=== PATIENT | male | born 1945 | race Caucasian/White ===

== ENCOUNTER 2017-09-14 05:20 | Emergency (ER) | payer OTHER ==
[~2017-09-14] VITALS: Ht 177.8 cm; Wt 122.5 kg
[~2017-09-14 05:20] MED LIST: AMLO10 PO; AMOX500 PO; CARBLEV25 PO; DOCU100 PO; GLIP10 PO; INDO25 PO; LEVSOD50 PO; LOSHYD100 PO; METF500 PO; METO25 PO; OMEP20ER PO
[2017-09-14] MEDS ORDERED: FISH OIL 1,0001 EAC1 PO (05:42)
[2017-09-14] MEDS ORDERED: Hair, Skin & N1 EACH PO (05:43)
[2017-09-14] MEDS ORDERED: SIMV10 PO (05:44)
[2017-09-14] MEDS ORDERED: POLYETHYLENE G500 GM PO (05:44)
[2017-09-14] MEDS ORDERED: TRAZ50 PO (05:45)
[2017-09-14] MEDS ORDERED: OXYC5 PO (05:46)
[2017-09-14 07:14] LABS: BASOPHILS ABSOLUTE AUTO 0.04 K/mm3 (0.00-0.23); BASOPHILS PERCENT AUTO 0 % (0-2); EOSINOPHILS ABSOLUTE AUTO 0.17 K/mm3 (0.00-0.68); EOSINOPHILS PERCENT AUTO 2 % (0-6); Hematocrit 40.2 % (37.0-53.0); Hemoglobin 13.7 g/dL (13.5-17.5); IMMATURE GRAN ABSOLUTE AUTO 0.05 K/mm3 (0.00-0.10); IMMATURE GRAN PERCENT AUTO 1 % (0-1); LYMPHOCYTES ABSOLUTE AUTO 1.67 K/mm3 (0.84-5.20); LYMPHOCYTES PERCENT AUTO 18 % (21-46); MONOCYTES ABSOLUTE AUTO 0.86 K/mm3 (0.16-1.47); MONOCYTES PERCENT AUTO 9 % (4-13); Mean Corpuscular HGB 32.7 pg (26.0-34.0); Mean Corpuscular HGB Conc 34.1 g/dL (31.5-36.5); Mean Corpuscular Volume 96 fL (80-100); Mean Platelet Volume 9.9 fL (9.1-12.4); NEUTROPHILS ABSOLUTE AUTO 6.61 K/mm3 (1.96-9.15); NEUTROPHILS PERCENT AUTO 70 % (41-73); Platelet Count 209 K/mm3 (150-400); RDW Standard Deviation 46.2 fL (35.1-46.3); Red Blood Cell Count 4.19 M/mm3 (4.30-5.90)
[2017-09-14 07:23] LABS: Anion Gap 9 mmol/L (6-16); Blood Urea Nitrogen 16 mg/dL (8-24); Bun/Creatinine Ratio 19.3 (12.0-20.0); CO2, Blood 27 mmol/L (21-32); Calcium, Blood 8.7 mg/dL (8.5-10.1); Chloride, Blood 104 mmol/L (98-108); Creatinine, Blood 0.83 mg/dL (0.60-1.20); Glomerular Filtration Rate >60 (60-); Glucose, Blood 206 mg/dL (70-99); Potassium, Blood 3.8 mmol/L (3.5-5.5); Sodium, Blood 140 mmol/L (136-145)
== END 2017-09-14 10:45 | disposition other institution (70) ==
LOC: ER 05:20
PROVIDERS: Emergency Medicine
DX: T18.128A Food in esophagus causing other injury, initial encounter (principal); I10 Essential (primary) hypertension; E11.9 Type 2 diabetes mellitus without complications; Z88.8 Allergy status to other drugs, medicaments and biological substances; Z79.899 Other long term (current) drug therapy; Z79.84 Long term (current) use of oral hypoglycemic drugs; Z87.891 Personal history of nicotine dependence
CPT/HCPCS: 80048; 82947; 85025; C1726; J1610; J2250; J7030; J7120

== ENCOUNTER 2018-05-27 | Emergency (ER) | payer OTHER ==
[~2018-05-27] VITALS: Ht 170.2 cm; Wt 122.5 kg
[~2018-05-27] MED LIST changes: +FISH OIL 1,0001 EAC1 PO; +Hair, Skin & N1 EACH PO; +OXYC5 PO; +POLYETHYLENE G500 GM PO; +SIMV10 PO; +TRAZ50 PO
== END 2018-05-27 02:10 | disposition home or self-care (01) ==
LOC: ER
DX: S09.90XA Unspecified injury of head, initial encounter (principal); M54.2 Cervicalgia; I10 Essential (primary) hypertension; E11.9 Type 2 diabetes mellitus without complications; Z88.8 Allergy status to other drugs, medicaments and biological substances; Z79.899 Other long term (current) drug therapy; Z79.84 Long term (current) use of oral hypoglycemic drugs; Z87.891 Personal history of nicotine dependence; W18.30XA Fall on same level, unspecified, initial encounter
CPT/HCPCS: 70450; 72125; 99284-25

== ENCOUNTER 2019-03-16 11:50 | Emergency (ER) | payer OTHER ==
[~2019-03-16] VITALS: Ht 175.3 cm; Wt 113.4 kg
[~2019-03-16 11:50] MED LIST changes: +ALOGLIPTIN25 MG PO; -CARBLEV25 PO; +CYAN500 PO; +Carbidopa-Levo1 EAC2 PO; +DONE5 PO; +DONEPEZIL HCL10 MG PO; +ENTA200 PO; +Fish Oil Conc1000 MG PO; +GABA100 PO; -GLIP10 PO; +GLIP5 PO; +Glucophage1000 MG PO; +HYDPAM25 PO; +LACT PO; +LIDOCAINE5 GM TOP; +LOSARTAN POTAS100 MG PO; +MEMA5TAB PO; -METF500 PO; +MIRALAX17 GM PO; +MYRBETRIQ25 MG PO; +Nystatin15 GM TOP; +OMEPRAZOLE20 MG PO; -POLYETHYLENE G500 GM PO; +THERA-D2000 UNIT PO; +TRIDERM28.4 GM TOP; +VANICREAM453 GM TOP; +VOLTAREN100 GM TOP; +Zinc Oxide56.7 GM TOP
[2019-03-16] MEDS ORDERED: TRIA15CR3 TOP (12:19)
[2019-03-16] MEDS ORDERED: VOLTAREN100 GM TOP (12:20)
[2019-03-16] MEDS ORDERED: NYSTATIN1 EAC1 TOP (12:21)
[2019-03-16 12:33] LABS: BASOPHILS ABSOLUTE AUTO 0.03 K/mm3 (0.00-0.23); BASOPHILS PERCENT AUTO 0 % (0-2); EOSINOPHILS ABSOLUTE AUTO 0.18 K/mm3 (0.00-0.68); EOSINOPHILS PERCENT AUTO 2 % (0-6); Hematocrit 42.7 % (37.0-53.0); Hemoglobin 14.3 g/dL (13.5-17.5); IMMATURE GRAN ABSOLUTE AUTO 0.04 K/mm3 (0.00-0.10); IMMATURE GRAN PERCENT AUTO 1 % (0-1); LYMPHOCYTES ABSOLUTE AUTO 0.97 K/mm3 (0.84-5.20); LYMPHOCYTES PERCENT AUTO 12 % (21-46); MONOCYTES ABSOLUTE AUTO 0.66 K/mm3 (0.16-1.47); MONOCYTES PERCENT AUTO 8 % (4-13); Mean Corpuscular HGB 31.9 pg (26.0-34.0); Mean Corpuscular HGB Conc 33.5 g/dL (31.5-36.5); Mean Corpuscular Volume 95 fL (80-100); Mean Platelet Volume 10.2 fL (9.1-12.4); NEUTROPHILS ABSOLUTE AUTO 6.11 K/mm3 (1.96-9.15); NEUTROPHILS PERCENT AUTO 76 % (41-73); Platelet Count 202 K/mm3 (150-400); RDW Coefficient Variation 12.9 % (11.7-14.2); RDW Standard Deviation 45.1 fL (35.1-46.3); Red Blood Cell Count 4.48 M/mm3 (4.30-5.90); White Blood Cell Count 7.99 K/mm3 (4.00-11.30)
[2019-03-16 12:59] LABS: Alanine Aminotransfer (ALT/SGP 11 U/L (12-78); Albumin, Blood 3.6 g/dL (3.4-5.0); Albumin/Globulin Ratio 0.9 (0.8-1.8); Alk Phos 65 U/L (50-136); Anion Gap 9 mmol/L (6-16); Aspartate Aminotrans (AST/SGOT 14 U/L (12-37); Bilirubin, Total 0.5 mg/dL (0.1-1.0); Blood Urea Nitrogen 20 mg/dL (8-24); Bun/Creatinine Ratio 27.2 (12.0-20.0); CO2, Blood 23 mmol/L (21-32); Calcium, Blood 8.6 mg/dL (8.5-10.1); Chloride, Blood 104 mmol/L (98-108); Creatinine, Blood 0.74 mg/dL (0.60-1.20); Globulin, Blood 3.9 g/dL (2.2-4.0); Glomerular Filtration Rate >60 (60-); Glucose, Blood 282 mg/dL (70-99); Potassium, Blood 3.8 mmol/L (3.5-5.5); Sodium, Blood 136 mmol/L (136-145); Total Protein, Blood 7.5 g/dL (6.4-8.2); Troponin I <0.015 ng/mL (0.000-0.040)
[2019-03-16] MEDS ORDERED: MAGOXI400 PO (14:44)
== END 2019-03-16 14:56 | disposition home or self-care (01) ==
LOC: ER 11:50
PROVIDERS: Emergency Medicine
DX: M62.838 Other muscle spasm (principal); E83.42 Hypomagnesemia; G20 Parkinson's disease; F02.80 Dementia in other diseases classified elsewhere, unspecified severity, without behavioral disturbance, psychotic disturbance, mood disturbance, and anxiety; I10 Essential (primary) hypertension; G47.33 Obstructive sleep apnea (adult) (pediatric); Z88.8 Allergy status to other drugs, medicaments and biological substances; Z79.899 Other long term (current) drug therapy; Z79.84 Long term (current) use of oral hypoglycemic drugs
CPT/HCPCS: 36415; 71046; 80053; 83735; 83880; 84484; 85025; 93005; 93010; 99285-25

== ENCOUNTER 2019-06-07 23:16 | Emergency (ER) | payer OTHER ==
[~2019-06-07] VITALS: Ht 165.1 cm; Wt 109.3 kg
[~2019-06-07 23:16] MED LIST changes: +MAGOXI400 PO; +NYSTATIN1 EAC1 TOP; +TRIA15CR3 TOP
== END 2019-06-08 01:37 | disposition home or self-care (01) ==
LOC: ER 23:16
DX: S00.83XA Contusion of other part of head, initial encounter (principal); F03.90 Unspecified dementia, unspecified severity, without behavioral disturbance, psychotic disturbance, mood disturbance, and anxiety; W18.30XA Fall on same level, unspecified, initial encounter; I10 Essential (primary) hypertension; E11.9 Type 2 diabetes mellitus without complications; E03.9 Hypothyroidism, unspecified; G20 Parkinson's disease; Z87.891 Personal history of nicotine dependence; Z79.899 Other long term (current) drug therapy; Z88.8 Allergy status to other drugs, medicaments and biological substances; Z79.84 Long term (current) use of oral hypoglycemic drugs
CPT/HCPCS: 70450; 72125; 93005; 93010; 99284-25

== ENCOUNTER 2020-03-06 11:04 | Emergency (ER) | payer OTHER ==
[~2020-03-06] VITALS: Ht 185.4 cm; Wt 120.2 kg
[~2020-03-06 11:04] MED LIST changes: +CEFP200 PO; +Macrobid 100 M100 MG PO; +ONDA4ODT SL
[2020-03-06 11:55] LABS: BASOPHILS ABSOLUTE AUTO 0.04 K/mm3 (0.00-0.23); BASOPHILS PERCENT AUTO 0 % (0-2); EOSINOPHILS ABSOLUTE AUTO 0.14 K/mm3 (0.00-0.68); EOSINOPHILS PERCENT AUTO 1 % (0-6); Hemoglobin 13.6 g/dL (13.5-17.5); IMMATURE GRAN ABSOLUTE AUTO 0.04 K/mm3 (0.00-0.10); IMMATURE GRAN PERCENT AUTO 0 % (0-1); LYMPHOCYTES ABSOLUTE AUTO 0.92 K/mm3 (0.84-5.20); LYMPHOCYTES PERCENT AUTO 9 % (21-46); MONOCYTES PERCENT AUTO 9 % (4-13); Mean Corpuscular HGB 30.8 pg (26.0-34.0); Mean Corpuscular Volume 91 fL (80-100); Mean Platelet Volume 10.4 fL (9.1-12.4); NEUTROPHILS ABSOLUTE AUTO 8.06 K/mm3 (1.96-9.15); NEUTROPHILS PERCENT AUTO 80 % (41-73); Platelet Count 173 K/mm3 (150-400); Red Blood Cell Count 4.41 M/mm3 (4.30-5.90)
[2020-03-06 12:09] LABS: Alanine Aminotransfer (ALT/SGP 8 U/L (12-78); Albumin, Blood 3.5 g/dL (3.4-5.0); Alk Phos 67 U/L (50-136); Anion Gap 6 mmol/L (6-16); Aspartate Aminotrans (AST/SGOT 16 U/L (12-37); Bilirubin, Total 0.8 mg/dL (0.1-1.0); Blood Urea Nitrogen 18 mg/dL (8-24); Bun/Creatinine Ratio 22.4 (12.0-20.0); CO2, Blood 29 mmol/L (21-32); Calcium, Blood 8.7 mg/dL (8.5-10.1); Chloride, Blood 103 mmol/L (98-108); Globulin, Blood 3.6 g/dL (2.2-4.0); Glomerular Filtration Rate >60 (60-); Glucose, Blood 261 mg/dL (70-99); Potassium, Blood 3.7 mmol/L (3.5-5.5); Sodium, Blood 138 mmol/L (136-145); Total Protein, Blood 7.1 g/dL (6.4-8.2); Troponin I <0.015 ng/mL (0.000-0.040)
[2020-03-06 15:20] LABS: Source, Urine Catheter
[2020-03-06 15:33] LABS: Blood, Urine 2+ (Neg); Glucose Qualitative, Urine 2+ (Neg); Ketones, Urine 1+ (Neg); Leukocyte Esterase, Urine 1+ (Neg); Nitrite, Urine Neg (Neg); Protein, Urine 2+ (Neg); Specific Gravity, Urine 1.015 (1.003-1.022); Urobilinogen, Urine NORM (Normal)
[2020-03-06 16:00] LABS: Appearance, Urine Hazy (Clear); Bilirubin, Urine 1+ (Neg); Color, Urine Yellow (P-Yellow); White Blood Cells, Urine 0-2 /hpf (0-5)
[2020-03-06 16:01] LABS: Amorphous Light (0-Heavy); Bacteria Many /hpf; Hyaline Casts 0-2 /lpf (0-2); Squamous Epithelial Cells Rare /hpf (Few)
== END 2020-03-06 17:09 | disposition home or self-care (01) ==
LOC: ER 11:04
PROVIDERS: Emergency Medicine
DX: R53.1 Weakness (principal); R06.02 Shortness of breath; R05 Cough; R61 Generalized hyperhidrosis; I10 Essential (primary) hypertension; E11.9 Type 2 diabetes mellitus without complications; G20 Parkinson's disease; Z88.8 Allergy status to other drugs, medicaments and biological substances; Z79.84 Long term (current) use of oral hypoglycemic drugs; Z87.891 Personal history of nicotine dependence; Z79.899 Other long term (current) drug therapy
CPT/HCPCS: 36415; 71045; 80053; 81001; 83605; 83880; 84145; 84484; 85025; 87086; 93005; 93010; 96365; 99285-25; J0696; J7120

== ENCOUNTER 2020-06-22 17:49 | Emergency (ER) | payer OTHER ==
[~2020-06-22] VITALS: Ht 175.3 cm; Wt 108.9 kg
[~2020-06-22 17:49] MED LIST changes: +CARBIDOPA-LEVO1 EA20 PO; -Carbidopa-Levo1 EAC2 PO; +EUTHYROX50 MCG PO; -LEVSOD50 PO; +LOSA25 PO; -LOSARTAN POTAS100 MG PO
[2020-06-22 18:17] LABS: BASOPHILS ABSOLUTE AUTO 0.05 K/mm3 (0.00-0.23); BASOPHILS PERCENT AUTO 1 % (0-2); EOSINOPHILS ABSOLUTE AUTO 0.12 K/mm3 (0.00-0.68); EOSINOPHILS PERCENT AUTO 1 % (0-6); Hematocrit 35.2 % (37.0-53.0); Hemoglobin 11.9 g/dL (13.5-17.5); IMMATURE GRAN ABSOLUTE AUTO 0.05 K/mm3 (0.00-0.10); IMMATURE GRAN PERCENT AUTO 1 % (0-1); LYMPHOCYTES ABSOLUTE AUTO 1.28 K/mm3 (0.84-5.20); LYMPHOCYTES PERCENT AUTO 13 % (21-46); MONOCYTES ABSOLUTE AUTO 0.86 K/mm3 (0.16-1.47); MONOCYTES PERCENT AUTO 9 % (4-13); Mean Corpuscular HGB 31.5 pg (26.0-34.0); Mean Corpuscular HGB Conc 33.8 g/dL (31.5-36.5); Mean Corpuscular Volume 93 fL (80-100); Mean Platelet Volume 10.2 fL (9.1-12.4); NEUTROPHILS PERCENT AUTO 76 % (41-73); Platelet Count 205 K/mm3 (150-400); RDW Coefficient Variation 13.1 % (11.7-14.2); RDW Standard Deviation 44.7 fL (35.1-46.3); Red Blood Cell Count 3.78 M/mm3 (4.30-5.90); White Blood Cell Count 9.76 K/mm3 (4.00-11.30)
[2020-06-22 18:35] LABS: Alanine Aminotransfer (ALT/SGP 9 U/L (12-78); Albumin, Blood 3.4 g/dL (3.4-5.0); Albumin/Globulin Ratio 1.1 (0.8-1.8); Alk Phos 65 U/L (50-136); Anion Gap 5 mmol/L (6-16); Aspartate Aminotrans (AST/SGOT 8 U/L (12-37); Bilirubin, Total 0.5 mg/dL (0.1-1.0); Blood Urea Nitrogen 35 mg/dL (8-24); Bun/Creatinine Ratio 28.5 (12.0-20.0); CO2, Blood 28 mmol/L (21-32); Calcium, Blood 8.6 mg/dL (8.5-10.1); Chloride, Blood 106 mmol/L (98-108); Creatinine, Blood 1.23 mg/dL (0.60-1.20); Globulin, Blood 3.2 g/dL (2.2-4.0); Glomerular Filtration Rate >60 (60-); Glucose, Blood 191 mg/dL (70-99); Potassium, Blood 4.1 mmol/L (3.5-5.5); Sodium, Blood 139 mmol/L (136-145); Total Protein, Blood 6.6 g/dL (6.4-8.2)
== END 2020-06-22 22:35 | disposition home or self-care (01) ==
LOC: ER 17:49
PROVIDERS: Emergency Medicine
DX: R53.1 Weakness (principal); R13.10 Dysphagia, unspecified; Z88.8 Allergy status to other drugs, medicaments and biological substances; Z79.899 Other long term (current) drug therapy
CPT/HCPCS: 80053; 83690; 85025; 93005; 93010; 99284-25

== ENCOUNTER 2020-06-30 15:16 | Emergency (ER) | payer OTHER ==
[~2020-06-30] VITALS: Ht 177.8 cm; Wt 562.5 kg
[2020-06-30 16:30] LABS: BASOPHILS ABSOLUTE AUTO 0.04 K/mm3 (0.00-0.23); BASOPHILS PERCENT AUTO 1 % (0-2); EOSINOPHILS ABSOLUTE AUTO 0.24 K/mm3 (0.00-0.68); EOSINOPHILS PERCENT AUTO 3 % (0-6); Hematocrit 36.2 % (37.0-53.0); Hemoglobin 12.3 g/dL (13.5-17.5); IMMATURE GRAN ABSOLUTE AUTO 0.03 K/mm3 (0.00-0.10); IMMATURE GRAN PERCENT AUTO 0 % (0-1); LYMPHOCYTES ABSOLUTE AUTO 1.29 K/mm3 (0.84-5.20); LYMPHOCYTES PERCENT AUTO 15 % (21-46); MONOCYTES ABSOLUTE AUTO 0.86 K/mm3 (0.16-1.47); MONOCYTES PERCENT AUTO 10 % (4-13); Mean Corpuscular HGB 31.3 pg (26.0-34.0); Mean Corpuscular Volume 92 fL (80-100); Mean Platelet Volume 10.2 fL (9.1-12.4); NEUTROPHILS ABSOLUTE AUTO 6.06 K/mm3 (1.96-9.15); NEUTROPHILS PERCENT AUTO 71 % (41-73); Platelet Count 197 K/mm3 (150-400); RDW Coefficient Variation 12.7 % (11.7-14.2); RDW Standard Deviation 42.5 fL (35.1-46.3); Red Blood Cell Count 3.93 M/mm3 (4.30-5.90); White Blood Cell Count 8.52 K/mm3 (4.00-11.30)
[2020-06-30 16:56] LABS: Alanine Aminotransfer (ALT/SGP 6 U/L (12-78); Albumin, Blood 3.2 g/dL (3.4-5.0); Albumin/Globulin Ratio 0.9 (0.8-1.8); Alk Phos 67 U/L (50-136); Anion Gap 6 mmol/L (6-16); Aspartate Aminotrans (AST/SGOT 9 U/L (12-37); Bilirubin, Total 0.4 mg/dL (0.1-1.0); Blood Urea Nitrogen 20 mg/dL (8-24); Bun/Creatinine Ratio 25.5 (12.0-20.0); CO2, Blood 31 mmol/L (21-32); Calcium, Blood 8.9 mg/dL (8.5-10.1); Chloride, Blood 104 mmol/L (98-108); Creatinine, Blood 0.79 mg/dL (0.60-1.20); Globulin, Blood 3.4 g/dL (2.2-4.0); Glomerular Filtration Rate >60 (60-); Glucose, Blood 132 mg/dL (70-99); Potassium, Blood 3.3 mmol/L (3.5-5.5); Sodium, Blood 141 mmol/L (136-145); Total Protein, Blood 6.6 g/dL (6.4-8.2)
== END 2020-06-30 19:18 | disposition home or self-care (01) ==
LOC: ER 15:16
PROVIDERS: Physician Assistant
DX: E86.1 Hypovolemia (principal); R55 Syncope and collapse; I10 Essential (primary) hypertension; E11.9 Type 2 diabetes mellitus without complications; E03.9 Hypothyroidism, unspecified; Z88.8 Allergy status to other drugs, medicaments and biological substances; Z79.899 Other long term (current) drug therapy; Z79.84 Long term (current) use of oral hypoglycemic drugs; Z87.891 Personal history of nicotine dependence
CPT/HCPCS: 36415; 80053; 84484; 85025; 93005; 93010; 99284-25

== ENCOUNTER 2020-09-02 18:13 | Emergency (ER) | payer OTHER ==
[~2020-09-02] VITALS: Ht 175.3 cm; Wt 109.8 kg
[2020-09-02 18:34] LABS: BASOPHILS ABSOLUTE AUTO 0.03 K/mm3 (0.00-0.23); BASOPHILS PERCENT AUTO 0 % (0-2); EOSINOPHILS ABSOLUTE AUTO 0.28 K/mm3 (0.00-0.68); EOSINOPHILS PERCENT AUTO 3 % (0-6); Hematocrit 38.8 % (37.0-53.0); Hemoglobin 13.2 g/dL (13.5-17.5); IMMATURE GRAN ABSOLUTE AUTO 0.03 K/mm3 (0.00-0.10); IMMATURE GRAN PERCENT AUTO 0 % (0-1); LYMPHOCYTES ABSOLUTE AUTO 1.28 K/mm3 (0.84-5.20); LYMPHOCYTES PERCENT AUTO 14 % (21-46); MONOCYTES PERCENT AUTO 10 % (4-13); Mean Corpuscular HGB 31.4 pg (26.0-34.0); Mean Corpuscular Volume 92 fL (80-100); Mean Platelet Volume 9.8 fL (9.1-12.4); NEUTROPHILS ABSOLUTE AUTO 6.72 K/mm3 (1.96-9.15); NEUTROPHILS PERCENT AUTO 73 % (41-73); Platelet Count 203 K/mm3 (150-400); RDW Coefficient Variation 13.4 % (11.7-14.2); RDW Standard Deviation 45.5 fL (35.1-46.3); Red Blood Cell Count 4.21 M/mm3 (4.30-5.90); White Blood Cell Count 9.24 K/mm3 (4.00-11.30)
[2020-09-02 18:46] LABS: Source, Urine Clean Catch
[2020-09-02 18:48] LABS: Appearance, Urine Hazy (Clear); Bilirubin, Urine Neg (Neg); Blood, Urine 2+ (Neg); Color, Urine Amber (P-Yellow); Glucose Qualitative, Urine 1+ (Neg); Ketones, Urine 2+ (Neg); Leukocyte Esterase, Urine 3+ (Neg); Nitrite, Urine Neg (Neg); Protein, Urine 2+ (Neg); Urobilinogen, Urine NORM (Normal)
[2020-09-02 18:54] LABS: Amorphous Mod (0-Heavy); Bacteria Mod /hpf; Mucus Light (0-Heavy); Squamous Epithelial Cells Few /hpf (Few)
[2020-09-02 19:12] LABS: Alanine Aminotransfer (ALT/SGP 9 U/L (12-78); Albumin, Blood 3.6 g/dL (3.4-5.0); Alk Phos 63 U/L (50-136); Anion Gap 8 mmol/L (6-16); Aspartate Aminotrans (AST/SGOT 8 U/L (12-37); Bilirubin, Total 0.6 mg/dL (0.1-1.0); Blood Urea Nitrogen 32 mg/dL (8-24); Bun/Creatinine Ratio 29.4 (12.0-20.0); CO2, Blood 27 mmol/L (21-32); Calcium, Blood 9.2 mg/dL (8.5-10.1); Chloride, Blood 103 mmol/L (98-108); Creatinine, Blood 1.09 mg/dL (0.60-1.20); Globulin, Blood 3.7 g/dL (2.2-4.0); Glomerular Filtration Rate >60 (60-); Glucose, Blood 232 mg/dL (70-99); Potassium, Blood 3.6 mmol/L (3.5-5.5); Sodium, Blood 138 mmol/L (136-145); Total Protein, Blood 7.3 g/dL (6.4-8.2)
[2020-09-02] MEDS ORDERED: CEFP200 PO (20:32)
== END 2020-09-02 21:52 | disposition home or self-care (01) ==
LOC: ER 18:13
PROVIDERS: Emergency Medicine
DX: N39.0 Urinary tract infection, site not specified (principal); Z79.84 Long term (current) use of oral hypoglycemic drugs; Z79.899 Other long term (current) drug therapy
CPT/HCPCS: 36415; 71045; 80053; 81001; 85025; 87086; 93005; 93010; 96365; 99284-25; J0696

== ENCOUNTER 2020-11-04 11:06 | Emergency (ER) | payer OTHER ==
[~2020-11-04] VITALS: Ht 177.8 cm; Wt 104.3 kg
[2020-11-04] MEDS ORDERED: POTA10T PO (11:50)
[2020-11-04] MEDS ORDERED: SERT25 PO (11:51)
[2020-11-04] MEDS ORDERED: TRAZ50 PO (11:51)
[2020-11-04] MEDS ORDERED: BUSP10 PO (11:52)
[2020-11-04] MEDS ORDERED: MYRBETRIQ25 MG PO (11:54)
[2020-11-04] MEDS ORDERED: HYDCHL25 PO (11:54)
[2020-11-04 11:57] LABS: Alanine Aminotransfer (ALT/SGP <6 U/L (12-78); Albumin, Blood 3.6 g/dL (3.4-5.0); Albumin/Globulin Ratio 1.1 (0.8-1.8); Alk Phos 58 U/L (50-136); Anion Gap 6 mmol/L (6-16); Aspartate Aminotrans (AST/SGOT 14 U/L (12-37); Bilirubin, Total 0.6 mg/dL (0.1-1.0); Blood Urea Nitrogen 26 mg/dL (8-24); Bun/Creatinine Ratio 31.4 (12.0-20.0); CO2, Blood 28 mmol/L (21-32); Calcium, Blood 8.7 mg/dL (8.5-10.1); Chloride, Blood 103 mmol/L (98-108); Creatinine, Blood 0.83 mg/dL (0.60-1.20); Globulin, Blood 3.4 g/dL (2.2-4.0); Glomerular Filtration Rate >60 (60-); Glucose, Blood 159 mg/dL (70-99); Potassium, Blood 3.7 mmol/L (3.5-5.5); Sodium, Blood 137 mmol/L (136-145)
[2020-11-04 12:49] LABS: BASOPHILS ABSOLUTE AUTO 0.05 K/mm3 (0.00-0.23); BASOPHILS PERCENT AUTO 1 % (0-2); EOSINOPHILS ABSOLUTE AUTO 0.17 K/mm3 (0.00-0.68); EOSINOPHILS PERCENT AUTO 2 % (0-6); Hematocrit 38.3 % (37.0-53.0); Hemoglobin 13.2 g/dL (13.5-17.5); IMMATURE GRAN ABSOLUTE AUTO 0.02 K/mm3 (0.00-0.10); IMMATURE GRAN PERCENT AUTO 0 % (0-1); LYMPHOCYTES ABSOLUTE AUTO 1.39 K/mm3 (0.84-5.20); LYMPHOCYTES PERCENT AUTO 19 % (21-46); MONOCYTES ABSOLUTE AUTO 0.91 K/mm3 (0.16-1.47); MONOCYTES PERCENT AUTO 13 % (4-13); Mean Corpuscular HGB 31.7 pg (26.0-34.0); Mean Corpuscular HGB Conc 34.5 g/dL (31.5-36.5); Mean Corpuscular Volume 92 fL (80-100); Mean Platelet Volume 10.5 fL (9.1-12.4); NEUTROPHILS ABSOLUTE AUTO 4.74 K/mm3 (1.96-9.15); NEUTROPHILS PERCENT AUTO 65 % (41-73); Platelet Count 171 K/mm3 (150-400); RDW Coefficient Variation 13.1 % (11.7-14.2); RDW Standard Deviation 43.9 fL (35.1-46.3); Red Blood Cell Count 4.17 M/mm3 (4.30-5.90); White Blood Cell Count 7.28 K/mm3 (4.00-11.30)
[2020-11-04 14:02] LABS: Source, Urine Catheter
[2020-11-04 14:12] LABS: Bilirubin, Urine Neg (Neg); Blood, Urine 2+ (Neg); Glucose Qualitative, Urine Neg (Neg); Ketones, Urine Neg (Neg); Leukocyte Esterase, Urine Neg (Neg); Nitrite, Urine Neg (Neg); Protein, Urine 1+ (Neg); Urobilinogen, Urine NORM (Normal)
[2020-11-04 14:55] LABS: Appearance, Urine Clear (Clear); Color, Urine Yellow (P-Yellow)
[2020-11-04 15:00] LABS: Bacteria Few /hpf; Squamous Epithelial Cells Few /hpf (Few)
== END 2020-11-04 16:20 | disposition home or self-care (01) ==
LOC: ER 11:06
PROVIDERS: Emergency Medicine
DX: R41.82 Altered mental status, unspecified (principal); Z88.8 Allergy status to other drugs, medicaments and biological substances; Z79.899 Other long term (current) drug therapy
CPT/HCPCS: 70450; 71045; 80053; 81001; 85025; 93005; 93010; 99285-25

== ENCOUNTER 2021-01-12 23:59 | Emergency (ER) | payer OTHER ==
[~2021-01-12] VITALS: Ht 175.3 cm; Wt 99.8 kg
[~2021-01-12 23:59] MED LIST changes: +BUSP10 PO; +HYDCHL25 PO; +POTA10T PO; +SERT25 PO
[2021-01-13 00:35] LABS: BASOPHILS ABSOLUTE AUTO 0.04 K/mm3 (0.00-0.23); BASOPHILS PERCENT AUTO 0 % (0-2); EOSINOPHILS ABSOLUTE AUTO 0.13 K/mm3 (0.00-0.68); EOSINOPHILS PERCENT AUTO 1 % (0-6); Hematocrit 42.9 % (37.0-53.0); Hemoglobin 14.6 g/dL (13.5-17.5); IMMATURE GRAN ABSOLUTE AUTO 0.04 K/mm3 (0.00-0.10); IMMATURE GRAN PERCENT AUTO 0 % (0-1); LYMPHOCYTES ABSOLUTE AUTO 1.54 K/mm3 (0.84-5.20); LYMPHOCYTES PERCENT AUTO 17 % (21-46); MONOCYTES ABSOLUTE AUTO 0.75 K/mm3 (0.16-1.47); MONOCYTES PERCENT AUTO 8 % (4-13); Mean Corpuscular HGB 31.7 pg (26.0-34.0); Mean Corpuscular Volume 93 fL (80-100); Mean Platelet Volume 9.9 fL (9.1-12.4); NEUTROPHILS ABSOLUTE AUTO 6.47 K/mm3 (1.96-9.15); NEUTROPHILS PERCENT AUTO 72 % (41-73); Platelet Count 165 K/mm3 (150-400); RDW Coefficient Variation 13.2 % (11.7-14.2); RDW Standard Deviation 45.1 fL (35.1-46.3); Red Blood Cell Count 4.61 M/mm3 (4.30-5.90); White Blood Cell Count 8.97 K/mm3 (4.00-11.30)
[2021-01-13 00:50] LABS: Alanine Aminotransfer (ALT/SGP 8 U/L (12-78); Albumin, Blood 3.7 g/dL (3.4-5.0); Albumin/Globulin Ratio 1.1 (0.8-1.8); Alk Phos 73 U/L (50-136); Anion Gap 9 mmol/L (6-16); Aspartate Aminotrans (AST/SGOT 11 U/L (12-37); Bilirubin, Total 0.9 mg/dL (0.1-1.0); Blood Urea Nitrogen 26 mg/dL (8-24); Bun/Creatinine Ratio 30.5 (12.0-20.0); CO2, Blood 26 mmol/L (21-32); Calcium, Blood 8.8 mg/dL (8.5-10.1); Chloride, Blood 106 mmol/L (98-108); Creatinine, Blood 0.85 mg/dL (0.60-1.20); Globulin, Blood 3.4 g/dL (2.2-4.0); Glomerular Filtration Rate >60 (60-); Glucose, Blood 230 mg/dL (70-99); Sodium, Blood 141 mmol/L (136-145); Total Protein, Blood 7.1 g/dL (6.4-8.2); Troponin I <0.015 ng/mL (0.000-0.040)
== END 2021-01-13 02:28 | disposition home or self-care (01) ==
LOC: ER 23:59
PROVIDERS: Emergency Medicine
DX: R07.9 Chest pain, unspecified (principal); I10 Essential (primary) hypertension; E11.9 Type 2 diabetes mellitus without complications; E03.9 Hypothyroidism, unspecified; G47.33 Obstructive sleep apnea (adult) (pediatric); F03.90 Unspecified dementia, unspecified severity, without behavioral disturbance, psychotic disturbance, mood disturbance, and anxiety; Z79.899 Other long term (current) drug therapy; Z79.84 Long term (current) use of oral hypoglycemic drugs; Z88.8 Allergy status to other drugs, medicaments and biological substances; Z87.891 Personal history of nicotine dependence
CPT/HCPCS: 36415; 71045; 80053; 83690; 83880; 84484; 85025; 93005; 93010; 99285-25

== ENCOUNTER 2021-02-28 09:37 | Emergency (ER) | payer OTHER ==
[~2021-02-28] VITALS: Ht 175.3 cm; Wt 99.8 kg
== END 2021-02-28 11:56 | disposition home or self-care (01) ==
LOC: ER 09:37
DX: M25.552 Pain in left hip (principal); I10 Essential (primary) hypertension; E11.9 Type 2 diabetes mellitus without complications; E03.9 Hypothyroidism, unspecified; Z87.891 Personal history of nicotine dependence; Z79.899 Other long term (current) drug therapy; W01.0XXA Fall on same level from slipping, tripping and stumbling without subsequent striking against object, initial encounter
CPT/HCPCS: 73502; 99283-25

== ENCOUNTER 2021-03-07 22:09 | Inpatient (IN) | payer OTHER ==
[~2021-03-07] VITALS: Ht 177.8 cm; Wt 103.7 kg
[~2021-03-07 22:09] MED LIST changes: -ALOGLIPTIN25 MG PO; -CARBIDOPA-LEVO1 EA20 PO; -DONEPEZIL HCL10 MG PO; -EUTHYROX50 MCG PO; -GABA100 PO; -Glucophage1000 MG PO; -HYDCHL25 PO; -MEMA5TAB PO; -POTA10T PO; -SERT25 PO; -SIMV10 PO
[2021-03-07 22:58] LABS: BASOPHILS ABSOLUTE AUTO 0.04 K/mm3 (0.00-0.23); BASOPHILS PERCENT AUTO 1 % (0-2); EOSINOPHILS ABSOLUTE AUTO 0.36 K/mm3 (0.00-0.68); EOSINOPHILS PERCENT AUTO 4 % (0-6); Hematocrit 38.6 % (37.0-53.0); Hemoglobin 13.3 g/dL (13.5-17.5); IMMATURE GRAN ABSOLUTE AUTO 0.04 K/mm3 (0.00-0.10); IMMATURE GRAN PERCENT AUTO 1 % (0-1); LYMPHOCYTES ABSOLUTE AUTO 1.65 K/mm3 (0.84-5.20); LYMPHOCYTES PERCENT AUTO 19 % (21-46); MONOCYTES ABSOLUTE AUTO 1.04 K/mm3 (0.16-1.47); MONOCYTES PERCENT AUTO 12 % (4-13); Mean Corpuscular HGB 31.6 pg (26.0-34.0); Mean Corpuscular HGB Conc 34.5 g/dL (31.5-36.5); Mean Corpuscular Volume 92 fL (80-100); Mean Platelet Volume 9.8 fL (9.1-12.4); NEUTROPHILS ABSOLUTE AUTO 5.63 K/mm3 (1.96-9.15); NEUTROPHILS PERCENT AUTO 64 % (41-73); Platelet Count 170 K/mm3 (150-400); RDW Coefficient Variation 12.7 % (11.7-14.2); RDW Standard Deviation 42.7 fL (35.1-46.3); Red Blood Cell Count 4.21 M/mm3 (4.30-5.90); White Blood Cell Count 8.76 K/mm3 (4.00-11.30)
[2021-03-07 23:04] LABS: Source, Urine Catheter
[2021-03-07 23:13] LABS: Alanine Aminotransfer (ALT/SGP 17 U/L (12-78); Albumin, Blood 3.1 g/dL (3.4-5.0); Albumin/Globulin Ratio 0.8 (0.8-1.8); Alk Phos 69 U/L (50-136); Anion Gap 9 mmol/L (6-16); Aspartate Aminotrans (AST/SGOT 16 U/L (12-37); Bilirubin, Total 0.5 mg/dL (0.1-1.0); Blood Urea Nitrogen 28 mg/dL (8-24); Bun/Creatinine Ratio 25.5 (12.0-20.0); CO2, Blood 27 mmol/L (21-32); Calcium, Blood 8.7 mg/dL (8.5-10.1); Chloride, Blood 103 mmol/L (98-108); Globulin, Blood 3.7 g/dL (2.2-4.0); Glomerular Filtration Rate >60 (60-); Glucose, Blood 209 mg/dL (70-99); Sodium, Blood 139 mmol/L (136-145); Total Protein, Blood 6.8 g/dL (6.4-8.2); Troponin I <0.015 ng/mL (0.000-0.040)
[2021-03-07 23:34] LABS: Appearance, Urine Cloudy (Clear); Bilirubin, Urine Neg (Neg); Blood, Urine Neg (Neg); Color, Urine Yellow (P-Yellow); Glucose Qualitative, Urine 3+ (Neg); Ketones, Urine 1+ (Neg); Leukocyte Esterase, Urine 1+ (Neg); Nitrite, Urine Neg (Neg); Protein, Urine 2+ (Neg); Urobilinogen, Urine NORM (Normal)
[2021-03-07 23:41] LABS: Amorphous Mod (0-Heavy); Bacteria Many /hpf; Red Blood Cells, Urine 0-2 /hpf (0-2); Squamous Epithelial Cells Not Seen /hpf (Few)
[2021-03-08 00:28] LABS: SARS-Cov-2 (COVID-19) PCR, MMC NEGATIVE (NEGATIVE)
[2021-03-08 05:36] LABS: BASOPHILS ABSOLUTE AUTO 0.04 K/mm3 (0.00-0.23); BASOPHILS PERCENT AUTO 1 % (0-2); EOSINOPHILS ABSOLUTE AUTO 0.29 K/mm3 (0.00-0.68); EOSINOPHILS PERCENT AUTO 4 % (0-6); Hematocrit 36.6 % (37.0-53.0); Hemoglobin 12.5 g/dL (13.5-17.5); IMMATURE GRAN ABSOLUTE AUTO 0.05 K/mm3 (0.00-0.10); IMMATURE GRAN PERCENT AUTO 1 % (0-1); LYMPHOCYTES ABSOLUTE AUTO 1.44 K/mm3 (0.84-5.20); LYMPHOCYTES PERCENT AUTO 20 % (21-46); MONOCYTES ABSOLUTE AUTO 0.75 K/mm3 (0.16-1.47); MONOCYTES PERCENT AUTO 10 % (4-13); Mean Corpuscular HGB 31.5 pg (26.0-34.0); Mean Corpuscular HGB Conc 34.2 g/dL (31.5-36.5); Mean Corpuscular Volume 92 fL (80-100); Mean Platelet Volume 9.9 fL (9.1-12.4); NEUTROPHILS ABSOLUTE AUTO 4.62 K/mm3 (1.96-9.15); NEUTROPHILS PERCENT AUTO 64 % (41-73); Platelet Count 141 K/mm3 (150-400); RDW Coefficient Variation 12.8 % (11.7-14.2); RDW Standard Deviation 43.7 fL (35.1-46.3); Red Blood Cell Count 3.97 M/mm3 (4.30-5.90); White Blood Cell Count 7.19 K/mm3 (4.00-11.30)
[2021-03-08 05:54] LABS: Alanine Aminotransfer (ALT/SGP 12 U/L (12-78); Albumin, Blood 2.8 g/dL (3.4-5.0); Albumin/Globulin Ratio 0.8 (0.8-1.8); Alk Phos 60 U/L (50-136); Anion Gap 8 mmol/L (6-16); Aspartate Aminotrans (AST/SGOT 9 U/L (12-37); Bilirubin, Total 0.4 mg/dL (0.1-1.0); Blood Urea Nitrogen 27 mg/dL (8-24); Bun/Creatinine Ratio 29.1 (12.0-20.0); CO2, Blood 27 mmol/L (21-32); Calcium, Blood 8.6 mg/dL (8.5-10.1); Chloride, Blood 104 mmol/L (98-108); Creatinine, Blood 0.93 mg/dL (0.60-1.20); Globulin, Blood 3.6 g/dL (2.2-4.0); Glomerular Filtration Rate >60 (60-); Glucose, Blood 224 mg/dL (70-99); Potassium, Blood 3.4 mmol/L (3.5-5.5); Sodium, Blood 139 mmol/L (136-145); Total Protein, Blood 6.4 g/dL (6.4-8.2)
[2021-03-08] MEDS ORDERED: MYRBETRIQ25 MG PO (15:31)
[2021-03-08] MEDS ORDERED: SENN187 PO (15:31)
[2021-03-08] MEDS ORDERED: MINIPRESS2 M1 PO (15:32)
[2021-03-08] MEDS ORDERED: ALOGLIPTIN25 MG PO (15:33)
[2021-03-08] MEDS ORDERED: POTA10T PO (15:33)
[2021-03-08] MEDS ORDERED: DONEPEZIL HCL10 MG PO (15:33)
[2021-03-08] MEDS ORDERED: EUTHYROX50 MCG PO (15:34)
[2021-03-08] MEDS ORDERED: MAGNESIUM OXID500 MG PO (15:35)
[2021-03-08] MEDS ORDERED: SIMV10 PO (15:37)
[2021-03-08] MEDS ORDERED: HYDCHL25 PO (15:38)
[2021-03-08] MEDS ORDERED: MIRALAX17 GM PO (15:39)
[2021-03-08] MEDS ORDERED: DICLOFENAC SOD100 G1 TOP (15:39)
[2021-03-08] MEDS ORDERED: SERT100 PO (15:40)
[2021-03-08] MEDS ORDERED: MEMA10 PO (15:41)
[2021-03-08] MEDS ORDERED: THERA-D2000 UNIT PO (15:42)
[2021-03-08] MEDS ORDERED: ACET500 PO (15:42)
[2021-03-08] MEDS ORDERED: TRAZ50 PO (15:43)
[2021-03-08] MEDS ORDERED: GABA300 PO (15:44)
[2021-03-08] MEDS ORDERED: CARBIDOPA-LEVO1 EA16 PO (15:45)
[2021-03-08] MEDS ORDERED: GLUCOPHAGE1000 M1 PO (15:46)
--- NOTE | 2021-03-08 17:36 | NUR ---
SHIFT SUMMARY PATIENT ADMITTED TO THE FLOOR LATE THIS AFTERNOON. PATIENT ALERT AND ORIENTED THIS SHIFT. 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 PATIENT PARTICIPATED IN ADMISSION, SPEECH BECOMING MUMBLES AT TIMES, PATIENT STATES DUE TO PARKINSON'S. PATIENT EVALUATED BY PT/OT AFTER ARRIVAL. PATIENT DENIES PAIN, CP, OR CHEST PRESSURE. PATIENT ON RA, O2 IN THE HIGH 90S ON RA. PATIENT CURRENTLY SITTING UP IN BED EATING DINNER.
--- NOTE | 2021-03-09 05:51 | NUR ---
PATIENT AWAKE A NIGHT. VERY CONFUSED MOST OF THE TIME. TOOK HS MEDS WITHOUT DIFFICULTY WITH THIN LIQUIDS. AROUND 2400, MERVAT BECAME RESTESS, AND TRIED PULLING OUT SIMMONS, AND THEN SUCCESSFULLY PULLED THE IV OUT OF HIS RIGHT FOREARM. HE CONTINUED TO FIDGET AND MOVE ABOUT IN THE BED UNTIL AROUND 0500 WHEN HE FINALLY DID FALL ASLEEP. SIMMONS CATH DRAINING CLEAR YELLOW URINE. NO C/O DISCOMFORT, BUT DID INSIST ON LAYING ON THE RAIL DESPITE ATTEMPTS TO REAJUST HIS POSITION. AM SYNTHROID HELD THIS MORNING PATIENT HAD JUST GOTTEN TO SLEEP
--- NOTE | 2021-03-09 16:56 | NUR ---
PT AAOX1-2, VITALS WNL NO ACUTE DISTRESS NOTED, ASSIST OF 1 AND NON COMPLIANCE WITH SAFETY MEASURES,ASSISTED OUT OF BED TO BED SIDE CHAIR WITH AN ALARM IN PLACE, EXCELLENT APPETITE,VISITED WITH FAMILY.TROY GOETZ D/C'D 1655 DUE TO VOID BY 00.55AM. CALL LIGHT IN PLACE,ASSISTED BACK TO BED, WILL CONTINUE TO MONITOR.
--- NOTE | 2021-03-10 04:38 | NUR ---
SHIFT SUMMARY: MERVAT HAS BEEN COOPERATIVE AND PLEASANT. ONLY CALLED OUT ONCE WHEN HE FORGOT TO USE HIS CALL LIGHT. HE HAD A SNACK PRIOR TO GOING TO SLEEP FOR THE NIGHT, TOOK HIS MEDS AND WENT TO BED. WAS ABLE TO VOID, INCONTIENT LARGE AMOUNT WITH NO PROBLEMS. NO OTHER ACUTE CHANGES WERE NOTED. CALL LIGHT IN REACH, BED ALARM ON. VS WNL.
[2021-03-10 04:59] LABS: BASOPHILS ABSOLUTE AUTO 0.03 K/mm3 (0.00-0.23); BASOPHILS PERCENT AUTO 0 % (0-2); EOSINOPHILS ABSOLUTE AUTO 0.29 K/mm3 (0.00-0.68); EOSINOPHILS PERCENT AUTO 4 % (0-6); Hematocrit 37.8 % (37.0-53.0); Hemoglobin 12.9 g/dL (13.5-17.5); IMMATURE GRAN ABSOLUTE AUTO 0.03 K/mm3 (0.00-0.10); IMMATURE GRAN PERCENT AUTO 0 % (0-1); LYMPHOCYTES ABSOLUTE AUTO 1.49 K/mm3 (0.84-5.20); LYMPHOCYTES PERCENT AUTO 18 % (21-46); MONOCYTES ABSOLUTE AUTO 0.78 K/mm3 (0.16-1.47); MONOCYTES PERCENT AUTO 10 % (4-13); Mean Corpuscular HGB 31.2 pg (26.0-34.0); Mean Corpuscular HGB Conc 34.1 g/dL (31.5-36.5); Mean Corpuscular Volume 91 fL (80-100); Mean Platelet Volume 9.7 fL (9.1-12.4); NEUTROPHILS ABSOLUTE AUTO 5.46 K/mm3 (1.96-9.15); NEUTROPHILS PERCENT AUTO 68 % (41-73); Platelet Count 146 K/mm3 (150-400); RDW Coefficient Variation 12.9 % (11.7-14.2); RDW Standard Deviation 43.2 fL (35.1-46.3); Red Blood Cell Count 4.14 M/mm3 (4.30-5.90); White Blood Cell Count 8.08 K/mm3 (4.00-11.30)
[2021-03-10 05:47] LABS: Albumin, Blood 2.9 g/dL (3.4-5.0); Anion Gap 10 mmol/L (6-16); Blood Urea Nitrogen 30 mg/dL (8-24); Bun/Creatinine Ratio 26.8 (12.0-20.0); CO2, Blood 26 mmol/L (21-32); Calcium, Blood 8.5 mg/dL (8.5-10.1); Chloride, Blood 104 mmol/L (98-108); Creatinine, Blood 1.12 mg/dL (0.60-1.20); Glomerular Filtration Rate >60 (60-); Glucose, Blood 165 mg/dL (70-99); Potassium, Blood 3.6 mmol/L (3.5-5.5); Sodium, Blood 140 mmol/L (136-145)
[2021-03-11 05:30] LABS: BASOPHILS ABSOLUTE AUTO 0.04 K/mm3 (0.00-0.23); BASOPHILS PERCENT AUTO 0 % (0-2); EOSINOPHILS ABSOLUTE AUTO 0.25 K/mm3 (0.00-0.68); EOSINOPHILS PERCENT AUTO 3 % (0-6); Hemoglobin 13.6 g/dL (13.5-17.5); IMMATURE GRAN ABSOLUTE AUTO 0.04 K/mm3 (0.00-0.10); IMMATURE GRAN PERCENT AUTO 0 % (0-1); LYMPHOCYTES ABSOLUTE AUTO 1.27 K/mm3 (0.84-5.20); LYMPHOCYTES PERCENT AUTO 14 % (21-46); MONOCYTES ABSOLUTE AUTO 0.86 K/mm3 (0.16-1.47); MONOCYTES PERCENT AUTO 9 % (4-13); Mean Corpuscular HGB 31.5 pg (26.0-34.0); Mean Corpuscular HGB Conc 34.9 g/dL (31.5-36.5); Mean Corpuscular Volume 90 fL (80-100); Mean Platelet Volume 9.9 fL (9.1-12.4); NEUTROPHILS ABSOLUTE AUTO 6.98 K/mm3 (1.96-9.15); NEUTROPHILS PERCENT AUTO 74 % (41-73); Platelet Count 141 K/mm3 (150-400); RDW Coefficient Variation 12.4 % (11.7-14.2); RDW Standard Deviation 40.9 fL (35.1-46.3); Red Blood Cell Count 4.32 M/mm3 (4.30-5.90); White Blood Cell Count 9.44 K/mm3 (4.00-11.30)
--- NOTE | 2021-03-11 06:10 | NUR ---
SALESPERSON FLOOR COVERINGS SUMMARY NO ACUTE CHANGES. PT AAOX2-3 WITH BASELINE DEMENTIA. VERY PLEASANT. PT INCONTINENT BUT CONTINUES TO VOID WELL AFTER HAVING SIMMONS CATH REMOVED 2 DAYS AGO. VSS, WILL CONTINUE TO MONITOR.
[2021-03-11 06:18] LABS: Albumin, Blood 3.2 g/dL (3.4-5.0); Anion Gap 8 mmol/L (6-16); Blood Urea Nitrogen 27 mg/dL (8-24); Bun/Creatinine Ratio 30.3 (12.0-20.0); CO2, Blood 30 mmol/L (21-32); Calcium, Blood 8.5 mg/dL (8.5-10.1); Chloride, Blood 98 mmol/L (98-108); Creatinine, Blood 0.89 mg/dL (0.60-1.20); Glomerular Filtration Rate >60 (60-); Glucose, Blood 186 mg/dL (70-99); Phosphorus, Blood 3.2 mg/dL (2.5-4.9); Potassium, Blood 3.3 mmol/L (3.5-5.5); Sodium, Blood 136 mmol/L (136-145)
--- NOTE | 2021-03-11 18:00 | NUR ---
PT AAOX1,APPEARED STABLE AT BASELINE, ASSISTED INTO CHAIR AT BEDSIDE WITH ALARM ON, ASSISTED BY 2 STAFFS BACK TO BED,VITALS STABLE MOST PART OF DAY BUT EVENING VITALS B/P WAS LOW 86/43, RECHECKED 90/54 THEN PT PUT BACK TO BED, PO FLUIDS ENCOURAGED AND RECHECKED B/P AND WAS NORMAL 117/63, HELD B/P MEDS MD NOTIFIED,VISITED WITH , NO ACUTE DISTRESS NOTED, APPETITE ADEQUATE IN ALL MEALS.CALL LIGHT IN PLACE AND WILL CONTINUE TO MONITOR.
--- NOTE | 2021-03-12 05:17 | NUR ---
MERVAT WAS AN ACTIVE PATIENT OVERNIGHT HE WAS AWAKE EACH TIME THIS RN AND HIS PROFESSIONAL TUTOR WOULD COME INTO THE ROOM. HE THREW HIS WATER PITCHER ACROSS THE ROOM, AND CONTINUED TO HALLUCINATE ABOUT PEOPLE HE THOUGHT WERE IN THE ROOM WITH HIM. HE WAS PLEASANT AND TRIED TO COOPERATE WITH CARE. INCONTINENT OF URINE, AND NO BOWEL MOVEMENTS OVERNIGHT TOOK HIS MEDS WHOLE IN APPLESAUCE WITHOUT DIFFICULTY
[2021-03-12 05:58] LABS: Albumin, Blood 3.4 g/dL (3.4-5.0); Anion Gap 7 mmol/L (6-16); Blood Urea Nitrogen 29 mg/dL (8-24); Bun/Creatinine Ratio 26.4 (12.0-20.0); CO2, Blood 32 mmol/L (21-32); Calcium, Blood 8.8 mg/dL (8.5-10.1); Chloride, Blood 97 mmol/L (98-108); Glomerular Filtration Rate >60 (60-); Glucose, Blood 223 mg/dL (70-99); Phosphorus, Blood 3.8 mg/dL (2.5-4.9); Potassium, Blood 3.8 mmol/L (3.5-5.5); Sodium, Blood 136 mmol/L (136-145)
--- NOTE | 2021-03-12 12:18 | NUR ---
PT ALERT AND CONFUSED, NON COMPLIANCE WITH SAFETY MEASURES,HAVE BEEN ASSISTED INTO BED AND CHAIR X3 SINCE MORNING,KEEP CLIMBING OUT OF BED OR CHAIR. WHILE IN CHAIR TOOK OFF HIS GOWN, THREW ALL PILLOWS ANMD LINENS ON THE FLOOR, DR MERCADO NOTIFEID, WILL PUT IN SOME ORDERS AND ALSO TO TRANSFER TO BACK UNIT.
--- NOTE | 2021-03-12 18:31 | NUR ---
Alert and oriented x1 ,unable to make needs known. Confused. Vital signs are stable.Insulin was given for blood glucose coverage. Denies any headache. No shortness of breath , OR chest pain noted. Bed alarm. Continue to monitor.
[2021-03-13] MEDS ORDERED: Amoxicillin500 MG PO (03:48)
[2021-03-13] MEDS ORDERED: DEXTRAN/GLYCER/HYPRO BOTHEYES (03:55)
[2021-03-13] MEDS ORDERED: MULVITA PO (03:58)
[2021-03-13] MEDS ORDERED: ENSURE PLUS PO (03:58)
--- NOTE | 2021-03-13 04:21 | NUR ---
SHIFT SUMMARY A/OX2, IMPULSIVE AT TIMES. SLEPT T/O SHIFT. DENIES PAIN OR SOB. VSS, NO ACUTE CHANGES AT THIS TIME. BED IN LOWEST POSITION WITH CALL LIGHT IN REACH. WILL CONTINUE TO MONITOR AND REPORT TO ONCOMING RN.
--- NOTE | 2021-03-13 18:59 | NUR ---
Alert and oriented x1 , verbalize sometimes. he is calm and no behavior issue noted. Vital signs are stable. Insulin was given for blood glucose coverage per ss. Bed alarm on and call light within reach. No changes in LOC. Continue to monitor.
--- NOTE | 2021-03-14 05:15 | NUR ---
SHIFT SUMMARY A/OX2, IMPULSIVE, INCOHERENT MUMBLING AT TIMES. DENIES PAIN OR SOB. BED ALARM ON FOR SAFETY. 2 MAX ASSIST. VSS, NO ACUTE CHANGES AT THIS TIME. BED IN LOWEST POSITION WITH CALL LIGHT IN REACH. WILL CONTINUE TO MONITOR AND REPORT TO ONCOMING RN.
--- NOTE | 2021-03-14 12:37 | NUR ---
Met with pt and his at bedside. She expresses a desire to take [facility]. I relayed the information to Rosalie, in care management. According to recent PT notes, pt is not progressing in therapy at this time. ORCHARDIST reports pt declines getting OOB except when PT comes in to work with him, and even then it appears he is disinterested. Spoke to Travis Verma,PT who does state pt is not improving with PT.
--- NOTE | 2021-03-14 19:27 | NUR ---
Alert and oriented x1 , confused and restless. Seroquel was given at one time and it was effective. Vital signs are stable. Insulin coverage was for blood sugar , no adverse efffect noted. Bed alarm on and call light on. Continue to monitor.
--- NOTE | 2021-03-15 05:01 | NUR ---
SHIFT SUMMARY A/O TO SELF, RESTLESS AT TIMES. DENIES PAIN OR SOB. 2P MAX ASSIST. VSS, NO ACUTE CHANGES AT THIS TIME. BED IN LOWEST POSITION WITH CALL LIGHT IN REACH. WILL CONTINUE TO MONITOR AND REPORT TO ONCOMING RN.
[2021-03-15 05:11] LABS: Hematocrit 37.8 % (37.0-53.0); Mean Corpuscular HGB 31.3 pg (26.0-34.0); Mean Corpuscular HGB Conc 34.4 g/dL (31.5-36.5); Mean Corpuscular Volume 91 fL (80-100); Mean Platelet Volume 10.2 fL (9.1-12.4); Platelet Count 138 K/mm3 (150-400); Red Blood Cell Count 4.15 M/mm3 (4.30-5.90); White Blood Cell Count 6.52 K/mm3 (4.00-11.30)
[2021-03-15 06:17] LABS: Albumin, Blood 3.3 g/dL (3.4-5.0); Anion Gap 8 mmol/L (6-16); Blood Urea Nitrogen 34 mg/dL (8-24); Bun/Creatinine Ratio 31.8 (12.0-20.0); CO2, Blood 28 mmol/L (21-32); Chloride, Blood 102 mmol/L (98-108); Creatinine, Blood 1.07 mg/dL (0.60-1.20); Glomerular Filtration Rate >60 (60-); Glucose, Blood 160 mg/dL (70-99); Potassium, Blood 3.6 mmol/L (3.5-5.5); Sodium, Blood 138 mmol/L (136-145)
--- NOTE | 2021-03-15 16:43 | NUR ---
PT AOX1 AND IN THE AM SEEMED MORE ALERT, BUT THE SHIFT WENT BY PT HAS BECOME MORE CONFUSED. PT IS ROLLING AROUND IN BED MOVEMENT APPEARS RELATED TO HIS PARKINSON MOVEMENT. PT IS TAKING HIS MEDICATION WELL AND HAS BEEN COOPERATIVE AT THIS TIME. PT IS READJUSTED EVERY COUPLE HOURS HE WIGGLES AROUND IN HIS BED. BED ALARM IS IN PLACE WILL CONTINUE TO MONITOR.
--- NOTE | 2021-03-16 04:43 | NUR ---
SHIFT SUMMARY A/O TO SELF AND FAMILY. IMPULSIVE AT TIMES. 2MAX ASSIST. VSS, NO ACUTE CHANGES AT THIS TIME. BED IN LOWEST POSITION WITH CALL LIGHT IN REACH. WILL CONTINUE TO MONITOR AND REPORT TO ONCOMING RN.
[2021-03-16 05:27] LABS: Albumin, Blood 3.1 g/dL (3.4-5.0); Anion Gap 8 mmol/L (6-16); Blood Urea Nitrogen 37 mg/dL (8-24); Bun/Creatinine Ratio 29.1 (12.0-20.0); CO2, Blood 29 mmol/L (21-32); Calcium, Blood 8.6 mg/dL (8.5-10.1); Chloride, Blood 102 mmol/L (98-108); Creatinine, Blood 1.27 mg/dL (0.60-1.20); Glomerular Filtration Rate 55 (60-); Glucose, Blood 163 mg/dL (70-99); Phosphorus, Blood 4.2 mg/dL (2.5-4.9); Potassium, Blood 3.6 mmol/L (3.5-5.5); Sodium, Blood 139 mmol/L (136-145)
--- NOTE | 2021-03-16 16:33 | NUR ---
SHIFT SUMMARY PATIENT IS ALERT AND ORIENTED X2, PLEASANT AND COOPERATIVE WITH CARE. THE PATIENT SLEPT THROUGH BREAKFAST THIS SHIFT. THE PATIENT WAS UP FOR LUNCH, AND WORKED WITH PHYSICAL THERAPY. THE PATIENT SPENT TIME UP IN THE CHAIR AT BEDSIDE. THE PATIENT'S SPOUSE WAS PRESENT WITH THEM WELL. NO ACUTE CHANGES THIS SHIFT. THE PATIENT IS BACK IN BED RESTING, WITH CALL LIGHT IN REACH. BED ALARM ON, BED IN LOWEST POSTION. THIS NURSE WILL CONTINUE TO CARE FOR THE PATIENT UNTIL SHIFT REPORT IS GIVEN TO ONCOMING NURSE.
--- NOTE | 2021-03-17 04:33 | NUR ---
PT IS STILL UNAWARE OF HIS LIMITATIONS. PT SPEECH IS GARBLED AT TIMES. PT HAS PIV TO LT FA. PT TAKES PO MEDS WHOLE IN APPLESAUCE.
--- NOTE | 2021-03-17 17:27 | NUR ---
SHIFT SUMMARY; PATIENT WAS UP IN RECLINER X 2 TODAY. HIS BLOOD PRESSURE WAS SOFT SO B/P MEDS HELD THIS EVENING. HE TAKES HIS MEDICATIONS WHOLE WITH APPLESAUCE BUT WOULD LIKE TO SWITCH TO PUDDING FOR NOC SHIFT AND TOMORROW. PATIENT IS AO 3 TODAY WITH EPISODES OF CONFUSION WHERE HE THINKS HE IS IN AN APARTMENT OF A FRIEND AND ALSO KEEPS PULLING AT HIS ARMS THINKING HE IS COVERED IN BANDAGES. PER PATIENT HIS SPOUSE IS VISITING HER FAMILY OUT OF TOWN AND WILL RETURN ON SUNDAY EVENING. IV TO LEFT FOREARM SALINE LOCKED. LUPE ABREU RN
--- NOTE | 2021-03-18 03:51 | NUR ---
SHIFT SUMMARY PT PLEASANTLY CONFUSED. ALERT TO SELF ONLY THIS EVENING. PT AWAKE ALL NIGHT. YELLING OUT FREQUENTLY, "HELLO" OR CALLING OUT FOR "HERBERT". SETTING OFF THE BED ALARM SEVERAL TIMES. PT UP TO BS WITH HEAVY 2 PERSON ASSIST, FWW, AND GAIT BELT. HAD A VERY LARGE UNFORMED BROWN BOWEL MOVMENT. PT REMOVED GOWN MULTIPLE TIMES BUT LEFT IV INTACT. PT COUGHED A LOT THIS EVENING, NAGGING AND NON PRODUCTIVE. LUNG SOUNDS REMAIN SLIGHTLY WHEEZY. PT DENIED ANY PAIN. VITAL SIGNS REMAINED STABLE.
[2021-03-18 06:23] LABS: Albumin, Blood 3.1 g/dL (3.4-5.0); Anion Gap 10 mmol/L (6-16); Blood Urea Nitrogen 32 mg/dL (8-24); Bun/Creatinine Ratio 36.5 (12.0-20.0); CO2, Blood 25 mmol/L (21-32); Calcium, Blood 8.6 mg/dL (8.5-10.1); Chloride, Blood 104 mmol/L (98-108); Creatinine, Blood 0.88 mg/dL (0.60-1.20); Glomerular Filtration Rate >60 (60-); Glucose, Blood 166 mg/dL (70-99); Phosphorus, Blood 2.4 mg/dL (2.5-4.9); Potassium, Blood 3.5 mmol/L (3.5-5.5); Sodium, Blood 139 mmol/L (136-145)
--- NOTE | 2021-03-18 17:40 | NUR ---
SHIFT SUMMARY; PATIENT ATTEMPTING TO CLIMB OUT OF BED MULTIPLE TIMES DURING DAY. BED ALARM ON BED. PATIENT YELLING OUT AND DISROBING. PICKING AT DRESSING AROUND IV SITE. HE THROWS HIS LEGS OVER RAILS ON BED AND IS RETURNED TO BED MULTIPLE TIMES DURING DAY. LATE THIS AFTERNOON PATIENT HAD NEAR FALL OUT OF BED AND DECISION BY TO PLACE PATIENT IN VEST RESTRAINTS AND PUT HIM ON CAMERA HIS CONFUSION KEEPS HIM FROM BEING REDIRACTABLE AND HE IS A MAJOR FALL RISK. AFTER PATIENT PLACED IN VEST HE CONTINUES TO TRY AND GET OUT OF BED MOVING FROM ONE SIDE OF BED TO THE OTHER. PATIENT OFFERED URINAL OFFERED TO MOVE TO COMMODE. MET WITH RESISTANCE. HE IS PROVIDED WITH EVENING MEAL TRAY AND IS SATISFIED FOR A SHORT TIME. DECISION TO PLACE PAITENT ON CAMERA FOR ADDITIONAL FALL PREVENTION MEASURE. LUPE ABREU RN CARE MANAGER.
--- NOTE | 2021-03-19 05:28 | NUR ---
SHIFT SUMMARY MERVAT REMAINED IN RESTRAINTS, SOFT NAT VEST THROUGH OUT THE SHIFT. HE IS NOT ORIENTED TO HIS OWN LIMITATIONS, IS CONFUSED, AND A HIGH FALL RISK. WORD SALAD AT TIMES. DISCHARGE PLAN IS SNF PLACEMENT. IV ACCESS TO LFA, FLUSHES WELL. ROOM AIR. HE WAS ABLE TO SLEEP MOST OF THE NIGHT, AT TIMES DID ATTEMPT TO PUT LEGS OVER THE SIDE RAILING.
[2021-03-19 05:32] LABS: BASOPHILS ABSOLUTE AUTO 0.02 K/mm3 (0.00-0.23); BASOPHILS PERCENT AUTO 0 % (0-2); EOSINOPHILS ABSOLUTE AUTO 0.12 K/mm3 (0.00-0.68); EOSINOPHILS PERCENT AUTO 2 % (0-6); Hemoglobin 12.1 g/dL (13.5-17.5); IMMATURE GRAN ABSOLUTE AUTO 0.02 K/mm3 (0.00-0.10); IMMATURE GRAN PERCENT AUTO 0 % (0-1); LYMPHOCYTES ABSOLUTE AUTO 1.23 K/mm3 (0.84-5.20); LYMPHOCYTES PERCENT AUTO 24 % (21-46); MONOCYTES ABSOLUTE AUTO 0.72 K/mm3 (0.16-1.47); MONOCYTES PERCENT AUTO 14 % (4-13); Mean Corpuscular HGB 31.1 pg (26.0-34.0); Mean Corpuscular HGB Conc 33.6 g/dL (31.5-36.5); Mean Corpuscular Volume 93 fL (80-100); Mean Platelet Volume 10.1 fL (9.1-12.4); NEUTROPHILS ABSOLUTE AUTO 2.96 K/mm3 (1.96-9.15); NEUTROPHILS PERCENT AUTO 58 % (41-73); Platelet Count 147 K/mm3 (150-400); RDW Coefficient Variation 12.8 % (11.7-14.2); RDW Standard Deviation 43.1 fL (35.1-46.3); Red Blood Cell Count 3.89 M/mm3 (4.30-5.90); White Blood Cell Count 5.07 K/mm3 (4.00-11.30)
[2021-03-19 05:58] LABS: Anion Gap 7 mmol/L (6-16); Blood Urea Nitrogen 25 mg/dL (8-24); Bun/Creatinine Ratio 30.6 (12.0-20.0); CO2, Blood 28 mmol/L (21-32); Calcium, Blood 8.6 mg/dL (8.5-10.1); Chloride, Blood 106 mmol/L (98-108); Creatinine, Blood 0.82 mg/dL (0.60-1.20); Glomerular Filtration Rate >60 (60-); Glucose, Blood 126 mg/dL (70-99); Potassium, Blood 3.4 mmol/L (3.5-5.5); Sodium, Blood 141 mmol/L (136-145)
--- NOTE | 2021-03-19 16:18 | NUR ---
SHIFT SUMMARY PT AWAKE DURING SHIFT REPORT, YELLING FOR DRINK OF WATER. ICE WATER OBTAINED AND GIVEN. PT ABLE TO DRINK WITH MINIMAL ASSIST. BUE'S SHAKEY WITH TREMORS, BUT CAN ASSIST. PT WITH HX OF PARKINSONS AND DEMENTIA. ABLE TO FOLLOW SIMPLE DIRECTIONS. UP TO CHAIR FOR A WHILE. BATH GIVEN WITH LINENS AND GOWN CHANGED. PT RESTING QUIETLY AT THIS TIME, AFTER GOING BACK TO BED. PT NEEDING ASSIST WITH MEALS. A&O TO SELF ONLY. BED AND CHAIR ALARM USED FOR SAFETY. CALL LT IN REACH.
--- NOTE | 2021-03-20 03:46 | NUR ---
SHIFT SUMMARY MERVAT REMAINED IN A SOFT VEST RESTRAINT THIS EVENING, HE DID ATTEMPT TO GET OUT OF BED ONCE. HE IS PLEASANT WITH STAFF, AND COOPERATIVE. UP TO THE BSC WITH TWO PERSON ASSIST, GAIT BELT AND FWW. INCONTINENT OF URINE, ATTENDS IN PLACE. IV ACCESS IN LFA. ROOM AIR. SLEPT THE MAJORITY OF THE SHIFT. PT HAS HX OF VAISHALI, STATES THAT HE HAS A CPAP AT HOME, BUT "DOESN'T REALLY USE IT."
[2021-03-20 04:50] LABS: Anion Gap 8 mmol/L (6-16); Blood Urea Nitrogen 20 mg/dL (8-24); Bun/Creatinine Ratio 23.9 (12.0-20.0); CO2, Blood 26 mmol/L (21-32); Calcium, Blood 8.4 mg/dL (8.5-10.1); Chloride, Blood 107 mmol/L (98-108); Creatinine, Blood 0.84 mg/dL (0.60-1.20); Glomerular Filtration Rate >60 (60-); Glucose, Blood 121 mg/dL (70-99); Sodium, Blood 141 mmol/L (136-145)
--- NOTE | 2021-03-20 14:56 | NUR ---
SHIFT SUMMARY PT AWAKE THIS AM AND SEEMS TO BE MORE ALERT. PT WANTING TO GO HOME AND ASKING FOR HIS ALL DAY. RESTRAINTS REMOVED AT START OF SHIFT. BED ALARM REMAINS ON. PT HAS BEEN USING HIS CALL LT TODAY. DR WILSONTRATE IN TO SEE PT THIS AM. PT WANTING TO GO HOME. ABLE TO FEED HIMSELF BREAKFAST AND LUNCH TODAY. A LITTLE MESSY, BUT DOING MUCH BETTER THAN YESTERDAY. FINGER FOOD ORDERED FOR DINNER PT MAY DO BETTER WITH FEEDING HIMSELF. INCONTINENT OF BOWEL AND BLADDER. NO C/O. BED ALARM ON FOR SAFETY. CALL LT IN REACH.
--- NOTE | 2021-03-20 23:32 | NUR ---
HALLUCINATIONS - PT HAS HX OF PARKINSONS DEMENTIA. PAST TWO NIGHTS HE HAS BEEN TALKING ABOUT HIS 4 YEARS IN [place]. THIS EVENING, HE IS AFRAID, STATING "THE BEARS WILL GET YOU, BE CAREFUL WHEN YOU GO OUTSIDE." HE IS ASKING FOR HIS PARENTS. PT STATES, "IM AFRAID, I WAS HOPING YOU'D HUG ME SO I KNOW I'LL BE OK." ADMINISTERED PRN SEROQUEL 25MG. PT IS NOT ATTEMPTING TO GET OUT OF BED, BUT HAVING DIFFICULTY GETTING REST D/T FEARFUL HALLUCINATIONS.
--- NOTE | 2021-03-21 04:00 | NUR ---
SHIFT SUMMARY MERVAT REMAINED OUT OF RESTRAINTS FOR THE DURATION OF THE SHIFT, THE NAT VEST WAS REMOVED 03/20 AT 0700. PLAN IS TO D/C TO SNF, PLACEMENT PENDING WITH CASE MGMT INVOLVED. MERVAT RECEIVED PRN SEROQUEL FOR SOME FEARFUL HALLUCINATIONS THAT HE STARTED HAVING AROUND 2300. HE STATED THAT HE WAS AFRAID OF THE BEARS OUTSIDE, WAS ASKING STAFF TO LOCATE HIS PARENTS. MERVAT REMAINED EASILY REDIRECTABLE AND REASSURED. REQUIRED CLOSE OBSERVATION BECAUSE MERVAT DID ATTEMPT TO GET OUT OF BED, SWINGING LEGS OVER SIDERAILS. HE RESPONDED PLEASANTLY TO STAFF. A&O X 1-2 (PERSON AND SOMETIMES PLACE). ATTENDS IN PLACE, HE CAN USE THE URINAL WHEN ENCOURAGED BY STAFF. IV ACCESS IN THE RFA. ROOM AIR. VSS, NO ACUTE CHANGES.
[2021-03-21] MEDS ORDERED: FAMO20 PO (14:07)
[2021-03-21] MEDS ORDERED: DOCU100 PO (14:07)
[2021-03-21] MEDS ORDERED: LOSA25 PO (14:07)
[2021-03-21] MEDS ORDERED: METO25 PO (14:08)
[2021-03-21] MEDS ORDERED: QUET25 PO (14:09)
[2021-03-21] MEDS ORDERED: VISBIOME 112.51 EACH PO (14:09)
[2021-03-21] MEDS ORDERED: Sanctura20 MG PO (14:09)
--- NOTE | 2021-03-21 17:57 | NUR ---
SHIFT SUMMARY: PT A/O X 2 ONE PERSON MAX ASSIST TO CHAIR. PLEASANT AND COOPERATIVE WITH CARE. PT HAD LOW BP THIS EVENING, METOPROLOL HELD. PT SLEPT MOST OF THE MORNING BUT WAS AWAKE THE REST OF THE DAY. NO ACUTE CHANGES OR CONCERNS THIS SHIFT.
--- NOTE | 2021-03-22 04:13 | NUR ---
SHIFT SUMMARY ADMITTED FOR UTI/SEPTIC SHOCK. FULL CODE. PLAN IS FOR DC HOME W/HH, HIS SPOUSE IS THERE TO HELP. SOFT FINGER FOOD/ADA DIET. [facility] PT. HE IS A&O X1, HALLUCINATES AT TIMES. HE DOES NOT USE HIS CALL BUTTON, INSTEAD HE YELLS OUT. HE IS [place]. HE IS ON RA. OT & PHYSICAL THERAPIES ARE ASSISTING WITH THIS PT. MEDS MAY BE GIVEN WHOLE W/SAUCE.
--- NOTE | 2021-03-22 11:35 | NUR ---
DISCHARGE SUMMARY: PT UNABLE TO UNDERSTAND DISCHARGE INSTRUCTIONS. TC PLACED TO LEAH TO GIVE DC INSTRUCTIONS AND GAVE HER ETA FOR HER TO ARRIVE HOME. PT BELONGINGS PACKED AND SENT WITH PT VIA [facility] WITH [facility].
== END 2021-03-22 11:24 | disposition home health service (06) | DRG 871 ==
LOC: ER 22:09 → ERHOLD 22:10 → MEDS 22:10 → ERHOLD 22:10 → ER 22:10 → MEDS 22:10 → ERHOLD 03-08 15:38 → MEDS 03-08 16:11 → ERHOLD 03-08 16:11 → MEDS 03-08 16:12
PROVIDERS: Emergency Medicine; Family Medicine; Internal Medicine; Student in an Organized Health Care Education/Training Program; ADMIT Internal Medicine
DX: A40.8 Other streptococcal sepsis (principal); R65.21 Severe sepsis with septic shock; N39.0 Urinary tract infection, site not specified; Z20.822 Contact with and (suspected) exposure to COVID-19; E87.6 Hypokalemia; D69.6 Thrombocytopenia, unspecified; E03.9 Hypothyroidism, unspecified; E66.9 Obesity, unspecified; I10 Essential (primary) hypertension; E11.42 Type 2 diabetes mellitus with diabetic polyneuropathy; G20 Parkinson's disease; G47.33 Obstructive sleep apnea (adult) (pediatric); D64.9 Anemia, unspecified; F32.A Depression, unspecified; R40.0 Somnolence; Z78.1 Physical restraint status; F02.80 Dementia in other diseases classified elsewhere, unspecified severity, without behavioral disturbance, psychotic disturbance, mood disturbance, and anxiety; Z68.31 Body mass index [BMI] 31.0-31.9, adult; Z28.21 Immunization not carried out because of patient refusal; Z96.643 Presence of artificial hip joint, bilateral; Z96.652 Presence of left artificial knee joint; Z98.890 Other specified postprocedural states; Z90.89 Acquired absence of other organs; Z88.8 Allergy status to other drugs, medicaments and biological substances; Z79.899 Other long term (current) drug therapy
CPT/HCPCS: 36415; 71045; 76770; 80048; 80053; 80069; 81001; 82947; 83036; 83605; 83690; 84484; 85025; 85027; 87040; 87086; 93005; 93010; 94760; 94762; 96365; 96372; 97110; 97110-CQ; 97162; 97166; 97530; 97530-CQ; 97535; 99285-25; A9270; G0378; J0696; J1650; J7030; U0004

== ENCOUNTER 2021-12-27 09:06 | Emergency (ER) | payer OTHER ==
[~2021-12-27] VITALS: Ht 175.3 cm; Wt 104.3 kg
[~2021-12-27 09:06] MED LIST changes: +ACET500 PO; +ALOGLIPTIN25 MG PO; +Amoxicillin500 MG PO; +Atarax10 MG PO; +B-12 COMPL1000 MCG/2 IM; +BUSPIRONE HCL30 M1 PO; +Bactrim Ds Tab1 EACH PO; +CARBIDOPA-LEVO1 EA16 PO; +DEXTRAN/GLYCER/HYPRO BOTHEYES; +DICLOFENAC SOD100 G1 TOP; +DONEPEZIL HCL10 MG PO; +ENSURE PLUS PO; +EUTHYROX50 MCG PO; +FAMO20 PO; +GABA300 PO; +GLUCOPHAGE1000 M1 PO; +HYDCHL25 PO; +MAGNESIUM OXID500 MG PO; +MEMA10 PO; +MINIPRESS2 M1 PO; +MULVITA PO; +POTA10T PO; +QUET25 PO; +SENN187 PO; +SERT100 PO; +SIMV10 PO; +Sanctura20 MG PO; +VISBIOME 112.51 EACH PO
== END 2021-12-27 11:42 | disposition home or self-care (01) ==
LOC: ER 09:06
DX: I95.9 Hypotension, unspecified (principal); E86.1 Hypovolemia; I10 Essential (primary) hypertension; E11.9 Type 2 diabetes mellitus without complications; E03.9 Hypothyroidism, unspecified; G20 Parkinson's disease; G47.33 Obstructive sleep apnea (adult) (pediatric); Z99.3 Dependence on wheelchair; Z88.8 Allergy status to other drugs, medicaments and biological substances; Z79.899 Other long term (current) drug therapy; Z79.84 Long term (current) use of oral hypoglycemic drugs; Z20.822 Contact with and (suspected) exposure to COVID-19
CPT/HCPCS: 99285

== ENCOUNTER 2022-01-02 00:57 | Emergency (ER) | payer OTHER ==
[~2022-01-02] VITALS: Ht 175.3 cm; Wt 104.3 kg
[2022-01-02 01:29] LABS: BASOPHILS ABSOLUTE AUTO 0.04 K/mm3 (0.00-0.23); BASOPHILS PERCENT AUTO 1 % (0-2); EOSINOPHILS ABSOLUTE AUTO 0.25 K/mm3 (0.00-0.68); EOSINOPHILS PERCENT AUTO 3 % (0-6); Hematocrit 35.5 % (37.0-53.0); Hemoglobin 12.1 g/dL (13.5-17.5); IMMATURE GRAN ABSOLUTE AUTO 0.05 K/mm3 (0.00-0.10); IMMATURE GRAN PERCENT AUTO 1 % (0-1); LYMPHOCYTES ABSOLUTE AUTO 1.36 K/mm3 (0.84-5.20); LYMPHOCYTES PERCENT AUTO 18 % (21-46); MONOCYTES ABSOLUTE AUTO 0.79 K/mm3 (0.16-1.47); MONOCYTES PERCENT AUTO 11 % (4-13); Mean Corpuscular HGB Conc 34.1 g/dL (31.5-36.5); Mean Corpuscular Volume 94 fL (80-100); Mean Platelet Volume 10.3 fL (9.1-12.4); NEUTROPHILS ABSOLUTE AUTO 5.05 K/mm3 (1.96-9.15); NEUTROPHILS PERCENT AUTO 67 % (41-73); Platelet Count 189 K/mm3 (150-400); RDW Coefficient Variation 13.1 % (11.7-14.2); RDW Standard Deviation 44.7 fL (35.1-46.3); Red Blood Cell Count 3.78 M/mm3 (4.30-5.90); White Blood Cell Count 7.54 K/mm3 (4.00-11.30)
[2022-01-02 01:47] LABS: Albumin, Blood 3.1 g/dL (3.4-5.0); Albumin/Globulin Ratio 0.9 (0.8-1.8); Bilirubin, Total 0.5 mg/dL (0.1-1.0); Bun/Creatinine Ratio 59.9 (12.0-20.0); Calcium, Blood 8.3 mg/dL (8.5-10.1); Creatinine, Blood 0.72 mg/dL (0.60-1.20); Globulin, Blood 3.4 g/dL (2.2-4.0); Potassium, Blood 4.7 mmol/L (3.5-5.5); Total Protein, Blood 6.5 g/dL (6.4-8.2)
== END 2022-01-02 03:24 | disposition home or self-care (01) ==
LOC: ER 00:57
PROVIDERS: Emergency Medicine
DX: I95.9 Hypotension, unspecified (principal); I10 Essential (primary) hypertension; E11.9 Type 2 diabetes mellitus without complications; G20 Parkinson's disease; F02.80 Dementia in other diseases classified elsewhere, unspecified severity, without behavioral disturbance, psychotic disturbance, mood disturbance, and anxiety
CPT/HCPCS: 80053; 85025; 93005; 93010

== ENCOUNTER 2022-06-23 09:41 | Observation (INO) | payer OTHER ==
[~2022-06-23] VITALS: Ht 175.3 cm; Wt 108.9 kg
[2022-06-23 10:15] LABS: BASOPHILS ABSOLUTE AUTO 0.06 K/mm3 (0.00-0.23); BASOPHILS PERCENT AUTO 1 % (0-2); EOSINOPHILS ABSOLUTE AUTO 0.27 K/mm3 (0.00-0.68); EOSINOPHILS PERCENT AUTO 3 % (0-6); Hematocrit 38.8 % (37.0-53.0); IMMATURE GRAN ABSOLUTE AUTO 0.03 K/mm3 (0.00-0.10); IMMATURE GRAN PERCENT AUTO 0 % (0-1); LYMPHOCYTES ABSOLUTE AUTO 1.51 K/mm3 (0.84-5.20); LYMPHOCYTES PERCENT AUTO 17 % (21-46); MONOCYTES ABSOLUTE AUTO 0.84 K/mm3 (0.16-1.47); MONOCYTES PERCENT AUTO 10 % (4-13); Mean Corpuscular HGB 32.7 pg (26.0-34.0); Mean Corpuscular HGB Conc 33.5 g/dL (31.5-36.5); Mean Corpuscular Volume 98 fL (80-100); Mean Platelet Volume 10.2 fL (9.1-12.4); NEUTROPHILS ABSOLUTE AUTO 6.12 K/mm3 (1.96-9.15); NEUTROPHILS PERCENT AUTO 69 % (41-73); Platelet Count 179 K/mm3 (150-400); RDW Coefficient Variation 13.4 % (11.7-14.2); RDW Standard Deviation 48.6 fL (35.1-46.3); Red Blood Cell Count 3.97 M/mm3 (4.30-5.90); White Blood Cell Count 8.83 K/mm3 (4.00-11.30)
[2022-06-23 10:20] LABS: Albumin, Blood 3.5 g/dL (3.4-5.0); Albumin/Globulin Ratio 1.1 (0.8-1.8); Bilirubin, Total 0.4 mg/dL (0.1-1.0); Bun/Creatinine Ratio 29.8 (12.0-20.0); Creatinine, Blood 1.21 mg/dL (0.60-1.20); Globulin, Blood 3.3 g/dL (2.2-4.0); Potassium, Blood 3.8 mmol/L (3.5-5.5); Total Protein, Blood 6.8 g/dL (6.4-8.2)
--- NOTE | 2022-06-23 17:07 | NUR ---
SHIFT SUMMARY- PT ADMITTED FROM ED. REPORT RECIEVED FROM MELINDA PAREKH. PT IS ALERT AND ORIENTED X3. HE IS ABLE TO TELL ME HIS NAME, , AND CURRENT LOCATION BUT DOESNT KNOW THE DATE. HE STATED THAT IT IS HARD FOR HIM TO KEEP UP WITH MOST INFORMATION ABOUT HIS MEDICAL HISTORY AND THE DATE BECAUSE HIS TAKES CARE OF EVERYTHING. PT INTERMITTENLY APPEARS TO BE TALKING TO SOMEONE IN THE ROOM THAT IS NOT THERE. FILING CLERK REPORTED SINUS 86 FIRST DEGREE .30, BUNDLE BLOCK. MD AWARE. HOLD ALL BETA BLOCKERS. DISCUSSED ORDERS FOR ORTHOSTATIC BLOOD PRESSURES WITH MD. TAKE BP WHILE PT LYING FLAT AND THEN AGAIN WITH HOB AT 90 DEGREES. PT IS BEDRIDDEN AND UNABLE TO STAND. CONTRACTURES NOTED TO BILAT LOWER EXTREMETIES.
[2022-06-24 06:07] LABS: BASOPHILS ABSOLUTE AUTO 0.04 K/mm3 (0.00-0.23); BASOPHILS PERCENT AUTO 0 % (0-2); EOSINOPHILS ABSOLUTE AUTO 0.11 K/mm3 (0.00-0.68); EOSINOPHILS PERCENT AUTO 1 % (0-6); IMMATURE GRAN ABSOLUTE AUTO 0.02 K/mm3 (0.00-0.10); IMMATURE GRAN PERCENT AUTO 0 % (0-1); LYMPHOCYTES ABSOLUTE AUTO 1.66 K/mm3 (0.84-5.20); LYMPHOCYTES PERCENT AUTO 18 % (21-46); MONOCYTES ABSOLUTE AUTO 0.88 K/mm3 (0.16-1.47); MONOCYTES PERCENT AUTO 10 % (4-13); Mean Corpuscular HGB 32.8 pg (26.0-34.0); Mean Corpuscular Volume 94 fL (80-100); Mean Platelet Volume 9.8 fL (9.1-12.4); NEUTROPHILS ABSOLUTE AUTO 6.56 K/mm3 (1.96-9.15); NEUTROPHILS PERCENT AUTO 71 % (41-73); Platelet Count 203 K/mm3 (150-400); RDW Coefficient Variation 13.2 % (11.7-14.2); RDW Standard Deviation 45.2 fL (35.1-46.3); Red Blood Cell Count 4.27 M/mm3 (4.30-5.90); White Blood Cell Count 9.27 K/mm3 (4.00-11.30)
[2022-06-24 07:09] LABS: Creatinine, Blood 0.8 mg/dL (0.60-1.20); Potassium, Blood 3.9 mmol/L (3.5-5.5)
[2022-06-24 07:30] LABS: Bun/Creatinine Ratio 29.9 (12.0-20.0); Calcium, Blood 8.9 mg/dL (8.5-10.1)
--- NOTE | 2022-06-24 07:33 | NUR ---
WEBSITE DESIGNER SUMMARY: ALERT, BUT ORIENTED TO SELF ONLY MOST OF THE TIME. SOMETIMES ASKING WHERE HIS IS, ASKING FOR CLOTHES SO HE CAN GET DRESSED TO LEAVE. OTHER TIMES, HAS ASKED STAFF IF THEY WILL COME GIVE HIM A KISS OR ASKED WHERE HIS CHILDREN ARE. AT ONE POINT, HE SAID IF HE DID NOT GET TO LEAVE RIGHT AWAY, HIS MOTHER WAS GOING TO BE VERY UPSET WITH HIM. TELE RUNNING FIRST-DEGREE HEART BLOCK WITH BUNDLE BRANCH BLOCK, THOUGH DIFFICULT TO ASSESS CONSISTENTLY, DUE TO PATIENT CONSTANTLY FIDDLING WITH TELE LEADS AND PULLING STICKERS OFF. INCONTINENT OF URINE AND IS A HEAVY WETTER . DOES NOT NOTIFY STAFF WHEN HE NEEDS CHANGED. BLOOD PRESSURES RUNNING >100 DIASTOLIC; ADMINISTERED ONE-TIME DOSE OF HYDRALAZINE PER DR BENJAMIN. LABS DRAWN THIS MORNING; NO CRITICAL RESULTS RECEIVED AT THIS TIME. WILL REPORT TO ONCOMING RN.
--- NOTE | 2022-06-24 17:00 | NUR ---
attempted to do ortho vitals. pt unable to stand. even with 2 people attempting to assist. pt unable to stand adequately to perform. reported to dr barrios.
--- NOTE | 2022-06-24 18:43 | NUR ---
PT WHISPERS WHEN TALKS , STATES THIS IS PARKINSONS RELATED. ATTEMPTED TO GET ORTHO VITALS. THIS WAS NOT ABLE TO BE ACCOMPLISHED. TOO UNSTEADY WITH [address] TO [address] DOMINIQUE NOTIFIED. PT CONTINUES TO BE A/O TO SELF AND SOME TO FAMILY. HE DID RECOGNIZE SOMEONE HE KNEW, AND EVENTUALLY WAS . DOES OCC MUMBLE NONSENSE. STATES HE HAS BECOME COMBATIVE LATELY AND IS LOOKING INTO PLACEMENT AT [facility]. NO OTHER NEW CONCERNS NOTED. BED IN LOW POSITION, CALL LITE IN REACH, BED ALARM ON FOR SAFETY
[2022-06-25 06:06] LABS: Hematocrit 38.5 % (37.0-53.0); Hemoglobin 13.1 g/dL (13.5-17.5); Mean Corpuscular HGB 32.2 pg (26.0-34.0); Mean Corpuscular Volume 95 fL (80-100); Mean Platelet Volume 9.9 fL (9.1-12.4); Platelet Count 182 K/mm3 (150-400); RDW Coefficient Variation 13.1 % (11.7-14.2); RDW Standard Deviation 45.1 fL (35.1-46.3); Red Blood Cell Count 4.07 M/mm3 (4.30-5.90); White Blood Cell Count 6.72 K/mm3 (4.00-11.30)
[2022-06-25 06:28] LABS: Albumin, Blood 3.6 g/dL (3.4-5.0); Anion Gap 5 mmol/L (6-16); Blood Urea Nitrogen 22 mg/dL (8-24); Bun/Creatinine Ratio 28.9 (12.0-20.0); CO2, Blood 28 mmol/L (21-32); Calcium, Blood 8.7 mg/dL (8.5-10.1); Chloride, Blood 103 mmol/L (98-108); Creatinine, Blood 0.76 mg/dL (0.60-1.20); Glomerular Filtration Rate 93 (60-); Glucose, Blood 116 mg/dL (70-99); Phosphorus, Blood 2.7 mg/dL (2.5-4.9); Potassium, Blood 3.5 mmol/L (3.5-5.5); Sodium, Blood 136 mmol/L (136-145)
--- NOTE | 2022-06-25 06:59 | NUR ---
GLOBAL HUMAN RESOURCES DIRECTOR SUMMARY: ALERT AND ORIENTED TO SELF ONLY WITH MOMENTS OF LUCIDITY. DIFFICULT TO REORIENT. CONDOM CATH APPLIED DUE TO POLYURIA. CONTINUES TO BE VERY FIDGETY IN SPITE OF HAVING RESTARTED SEROQUEL LAST NIGHT. PULLING ON TELE LEADS AND EVENTUALLY PULLED OUT CONDOM CATH. SECOND BACK 1/2NS RUNNING NOW. LABS ORDERED THIS MORNING; NO CRITICAL VALUES RECEIVED AT THIS TIME. WILL REPORT TO ONCOMING RN.
--- NOTE | 2022-06-25 14:45 | NUR ---
SPOKE TO AT 1430, SHE TO CALL ME WITH ANY QUESTIONS ON DISCARGE FORMS . HANDED FORMS TO TRANSPORT FOR DELIVERY TO [facility] . IV PULLED INTACT. TELE REMOVED. PT HAS DEMENTIA AND UNABLE TO UNDERSTAND DISCHARGE INST. PT WHEELED TO DOOR BY IA TOMI AT 1445.
== END 2022-06-25 14:35 | disposition home or self-care (01) ==
LOC: ER 09:41 → MEDS 12:05
PROVIDERS: Emergency Medicine; Internal Medicine; ADMIT Family Medicine
DX: R55 Syncope and collapse (principal); I45.3 Trifascicular block; N17.9 Acute kidney failure, unspecified; D63.8 Anemia in other chronic diseases classified elsewhere; G20 Parkinson's disease; F02.80 Dementia in other diseases classified elsewhere, unspecified severity, without behavioral disturbance, psychotic disturbance, mood disturbance, and anxiety; I10 Essential (primary) hypertension; E11.9 Type 2 diabetes mellitus without complications; E03.9 Hypothyroidism, unspecified; G47.33 Obstructive sleep apnea (adult) (pediatric); Z88.8 Allergy status to other drugs, medicaments and biological substances; Z79.899 Other long term (current) drug therapy; Z79.84 Long term (current) use of oral hypoglycemic drugs; Z87.891 Personal history of nicotine dependence
CPT/HCPCS: 36415; 80048; 80053; 80069; 82947; 83735; 84443; 84484; 85025; 85027; 93005; 93010; 96361; 96374; 97161; 97530; 99285-25; A9270; G0378; J0360; J7030

== ENCOUNTER 2022-08-18 11:16 | Emergency (ER) | payer OTHER ==
[~2022-08-18] VITALS: Ht 175.3 cm; Wt 86.2 kg
[2022-08-18 12:21] LABS: BASOPHILS ABSOLUTE AUTO 0.04 K/mm3 (0.00-0.23); BASOPHILS PERCENT AUTO 1 % (0-2); EOSINOPHILS ABSOLUTE AUTO 0.35 K/mm3 (0.00-0.68); EOSINOPHILS PERCENT AUTO 5 % (0-6); Hematocrit 37.4 % (37.0-53.0); IMMATURE GRAN ABSOLUTE AUTO 0.02 K/mm3 (0.00-0.10); IMMATURE GRAN PERCENT AUTO 0 % (0-1); LYMPHOCYTES ABSOLUTE AUTO 1.39 K/mm3 (0.84-5.20); LYMPHOCYTES PERCENT AUTO 20 % (21-46); MONOCYTES ABSOLUTE AUTO 0.72 K/mm3 (0.16-1.47); MONOCYTES PERCENT AUTO 10 % (4-13); Mean Corpuscular HGB 32.4 pg (26.0-34.0); Mean Corpuscular HGB Conc 34.8 g/dL (31.5-36.5); Mean Corpuscular Volume 93 fL (80-100); Mean Platelet Volume 9.9 fL (9.1-12.4); NEUTROPHILS ABSOLUTE AUTO 4.47 K/mm3 (1.96-9.15); NEUTROPHILS PERCENT AUTO 64 % (41-73); Platelet Count 185 K/mm3 (150-400); RDW Coefficient Variation 12.8 % (11.7-14.2); RDW Standard Deviation 44.2 fL (35.1-46.3); Red Blood Cell Count 4.01 M/mm3 (4.30-5.90); White Blood Cell Count 6.99 K/mm3 (4.00-11.30)
[2022-08-18 12:31] LABS: Albumin, Blood 3.3 g/dL (3.4-5.0); Albumin/Globulin Ratio 1.1 (0.8-1.8); Bilirubin, Total 0.5 mg/dL (0.1-1.0); Bun/Creatinine Ratio 36.3 (12.0-20.0); Calcium, Blood 8.8 mg/dL (8.5-10.1); Creatinine, Blood 0.74 mg/dL (0.60-1.20); Globulin, Blood 3.1 g/dL (2.2-4.0); Total Protein, Blood 6.4 g/dL (6.4-8.2)
[2022-08-18 16:45] VITALS: BP 135/93
== END 2022-08-18 17:35 | disposition home or self-care (01) ==
LOC: ER 11:16
PROVIDERS: Emergency Medicine
DX: R55 Syncope and collapse (principal); Z88.8 Allergy status to other drugs, medicaments and biological substances; Z79.899 Other long term (current) drug therapy; I10 Essential (primary) hypertension; E11.9 Type 2 diabetes mellitus without complications; G20 Parkinson's disease; E03.9 Hypothyroidism, unspecified; G47.33 Obstructive sleep apnea (adult) (pediatric)
CPT/HCPCS: 71045; 80053; 83880; 84484; 85025; 93005; 93010; 96360; 99285-25; J7030

== ENCOUNTER 2022-09-11 08:15 | Emergency (ER) | payer OTHER ==
[~2022-09-11] VITALS: Ht 177.8 cm; Wt 90.7 kg
[2022-09-11] MEDS ORDERED: DONEPEZIL HCL10 MG PO (09:11)
[2022-09-11] MEDS ORDERED: METO25 PO (09:12)
[2022-09-11] MEDS ORDERED: METF500 PO (09:13)
[2022-09-11 09:32] LABS: BASOPHILS ABSOLUTE AUTO 0.04 K/mm3 (0.00-0.23); BASOPHILS PERCENT AUTO 1 % (0-2); EOSINOPHILS ABSOLUTE AUTO 0.35 K/mm3 (0.00-0.68); EOSINOPHILS PERCENT AUTO 4 % (0-6); Hematocrit 40.6 % (37.0-53.0); Hemoglobin 13.7 g/dL (13.5-17.5); IMMATURE GRAN ABSOLUTE AUTO 0.01 K/mm3 (0.00-0.10); IMMATURE GRAN PERCENT AUTO 0 % (0-1); LYMPHOCYTES ABSOLUTE AUTO 1.96 K/mm3 (0.84-5.20); LYMPHOCYTES PERCENT AUTO 25 % (21-46); MONOCYTES ABSOLUTE AUTO 0.69 K/mm3 (0.16-1.47); MONOCYTES PERCENT AUTO 9 % (4-13); Mean Corpuscular HGB 32.2 pg (26.0-34.0); Mean Corpuscular HGB Conc 33.7 g/dL (31.5-36.5); Mean Corpuscular Volume 95 fL (80-100); Mean Platelet Volume 10.2 fL (9.1-12.4); NEUTROPHILS PERCENT AUTO 62 % (41-73); Platelet Count 201 K/mm3 (150-400); RDW Coefficient Variation 12.9 % (11.7-14.2); RDW Standard Deviation 45.3 fL (35.1-46.3); Red Blood Cell Count 4.26 M/mm3 (4.30-5.90); White Blood Cell Count 7.95 K/mm3 (4.00-11.30)
[2022-09-11 09:50] LABS: Bun/Creatinine Ratio 31.2 (12.0-20.0); Calcium, Blood 8.6 mg/dL (8.5-10.1); Creatinine, Blood 0.7 mg/dL (0.60-1.20); Potassium, Blood 3.5 mmol/L (3.5-5.5)
[2022-09-11 10:32] LABS: Source, Urine Straight Cath
[2022-09-11 10:37] LABS: Appearance, Urine Clear (Clear); Bilirubin, Urine Neg (Neg); Blood, Urine 1+ (Neg); Color, Urine Yellow (P-Yellow); Glucose Qualitative, Urine Neg (Neg); Ketones, Urine 1+ (Neg); Leukocyte Esterase, Urine 2+ (Neg); Nitrite, Urine Neg (Neg); Protein, Urine 2+ (Neg); Urobilinogen, Urine 1+ (Normal)
[2022-09-11 10:48] LABS: Red Blood Cells, Urine 0-2 /hpf (0-2)
[2022-09-11 10:49] LABS: Amorphous Mod (0-Heavy); Bacteria Mod /hpf; Squamous Epithelial Cells Mod /hpf (Few)
[2022-09-11 10:54] LABS: Base Excess Venous -0.9 mmol/L; Bicarbonate Venous 23.8 mmol/L (24.0-30.0); PCO2 Venous 38.7 mmHg (38-42)
[2022-09-11 10:56] LABS: U Amphetamine Screen Not Detected; U Barbituate Screen Not Detected; U Benzodiazapine Screen Not Detected; U Buprenorphine Screen Not Detected; U Cannabinoids Screen Not Detected; U Cocaine Screen Not Detected; U Methadone Screen Not Detected; U Methamphetamine Screen Not Detected; U Opiates Screen Not Detected; U Oxycodone Screen Not Detected; U Phencyclidine Screen Not Detected; U Propoxyphene Screen Not Detected
[2022-09-11 12:19] LABS: Albumin, Blood 3.3 g/dL (3.4-5.0); Albumin/Globulin Ratio 1.1 (0.8-1.8); Bilirubin, Direct 0.1 mg/dL (0.0-0.3); Bilirubin, Indirect 0.5 mg/dL (0.1-0.7); Bilirubin, Total 0.6 mg/dL (0.1-1.0); Total Protein, Blood 6.3 g/dL (6.4-8.2)
[2022-09-11] MEDS ORDERED: CEFU500T30 PO (12:53)
[2022-09-11 15:26] VITALS: BP 109/85
== END 2022-09-11 15:30 | disposition home or self-care (01) ==
LOC: ER 08:15
PROVIDERS: Student in an Organized Health Care Education/Training Program
DX: R40.4 Transient alteration of awareness (principal); G47.00 Insomnia, unspecified; F03.90 Unspecified dementia, unspecified severity, without behavioral disturbance, psychotic disturbance, mood disturbance, and anxiety; Z88.8 Allergy status to other drugs, medicaments and biological substances; Z79.899 Other long term (current) drug therapy; Z79.84 Long term (current) use of oral hypoglycemic drugs; I10 Essential (primary) hypertension; E11.9 Type 2 diabetes mellitus without complications; G20 Parkinson's disease; E03.9 Hypothyroidism, unspecified; G47.33 Obstructive sleep apnea (adult) (pediatric)
CPT/HCPCS: 51701; 80048; 80076; 81001; 82803; 85025; 87086; 93005; 93010; 99285-25; A9270

== ENCOUNTER 2023-04-13 07:16 | Inpatient (IN) | payer OTHER ==
[~2023-04-13] VITALS: Ht 177.8 cm; Wt 72.6 kg
[~2023-04-13 07:16] MED LIST changes: +CEFU500T30 PO; +METF500 PO
[2023-04-13 08:38] LABS: BASOPHILS ABSOLUTE AUTO 0.06 K/mm3 (0.00-0.23); BASOPHILS PERCENT AUTO 0 % (0-2); EOSINOPHILS ABSOLUTE AUTO 0.08 K/mm3 (0.00-0.68); EOSINOPHILS PERCENT AUTO 0 % (0-6); Hematocrit 44.2 % (37.0-53.0); Hemoglobin 15.4 g/dL (13.5-17.5); IMMATURE GRAN ABSOLUTE AUTO 0.16 K/mm3 (0.00-0.10); IMMATURE GRAN PERCENT AUTO 1 % (0-1); LYMPHOCYTES ABSOLUTE AUTO 2.34 K/mm3 (0.84-5.20); LYMPHOCYTES PERCENT AUTO 11 % (21-46); MONOCYTES ABSOLUTE AUTO 1.15 K/mm3 (0.16-1.47); MONOCYTES PERCENT AUTO 5 % (4-13); Mean Corpuscular HGB 32.6 pg (26.0-34.0); Mean Corpuscular HGB Conc 34.8 g/dL (31.5-36.5); Mean Corpuscular Volume 94 fL (80-100); Mean Platelet Volume 10.2 fL (9.1-12.4); NEUTROPHILS ABSOLUTE AUTO 18.16 K/mm3 (1.96-9.15); NEUTROPHILS PERCENT AUTO 83 % (41-73); Platelet Count 262 K/mm3 (150-400); RDW Coefficient Variation 13.5 % (11.7-14.2); RDW Standard Deviation 46.7 fL (35.1-46.3); Red Blood Cell Count 4.72 M/mm3 (4.30-5.90); White Blood Cell Count 21.95 K/mm3 (4.00-11.30)
[2023-04-13 09:05] LABS: Albumin, Blood 3.7 g/dL (3.4-5.0); Albumin/Globulin Ratio 0.9 (0.8-1.8); Bilirubin, Total 0.7 mg/dL (0.1-1.0); Bun/Creatinine Ratio 26.7 (12.0-20.0); Calcium, Blood 9.3 mg/dL (8.5-10.1); Creatinine, Blood 0.9 mg/dL (0.60-1.20); Globulin, Blood 3.9 g/dL (2.2-4.0); Total Protein, Blood 7.6 g/dL (6.4-8.2)
[2023-04-13 15:10] LABS: Source, Urine Clean Catch
[2023-04-13 15:36] LABS: Appearance, Urine Hazy (Clear); Bilirubin, Urine Neg (Neg); Blood, Urine 2+ (Neg); Color, Urine Yellow (P-Yellow); Glucose Qualitative, Urine 2+ (Neg); Ketones, Urine Neg (Neg); Leukocyte Esterase, Urine 1+ (Neg); Nitrite, Urine Neg (Neg); Protein, Urine 2+ (Neg); Specific Gravity, Urine 1.015 (1.003-1.022); Urobilinogen, Urine NORM (Normal)
[2023-04-13 15:58] LABS: Amorphous Mod (0-Heavy); Bacteria Few /hpf; Mucus Light (0-Heavy); Squamous Epithelial Cells Few /hpf (Few)
[2023-04-13 15:59] LABS: Calcium Oxalate Crystals Rare /hpf
[2023-04-13] MEDS ORDERED: B-12500 MC2 PO (19:36)
[2023-04-13] MEDS ORDERED: DOCU100 PO (19:39)
[2023-04-13] MEDS ORDERED: MYRBETRIQ25 MG PO (19:40)
[2023-04-13] MEDS ORDERED: BUSP5 PO (19:42)
[2023-04-13] MEDS ORDERED: SERT50 PO (19:43)
[2023-04-13 19:50] VITALS: BP 141/85
--- NOTE | 2023-04-14 01:58 | NUR ---
PT PULLED HIS NG TUBE OUT. NG TUBE REPLACED AT THIS TIME. PT TOLERATED, BUT STS THAT IT HURT.
--- NOTE | 2023-04-14 04:14 | NUR ---
SHIFT SUMMARY PT ADMITTED FROM ED LAST NIGHT FOR SEPSIS, AND LG BOWEL OBSTRUCTION. PT CAME TO FLOOR WITH NG TUBE. TUBE WAS DRAINING MINIMAL AMOUNT OF DARK BROWN LIQUID. PT HAS MOMENTS OF CONFUSION AND MOMENTS WHEN HE SEEMS TO KNOW WHAT IS GOING ON AROUND HIM. PT PULLED OUT NG TUBE. TUBE WAS REPLACED BY MELINDA FAJARDO.
[2023-04-14 05:21] LABS: BASOPHILS ABSOLUTE AUTO 0.02 K/mm3 (0.00-0.23); BASOPHILS PERCENT AUTO 0 % (0-2); EOSINOPHILS ABSOLUTE AUTO 0.01 K/mm3 (0.00-0.68); EOSINOPHILS PERCENT AUTO 0 % (0-6); Hematocrit 39.1 % (37.0-53.0); Hemoglobin 13.5 g/dL (13.5-17.5); IMMATURE GRAN ABSOLUTE AUTO 0.08 K/mm3 (0.00-0.10); IMMATURE GRAN PERCENT AUTO 1 % (0-1); LYMPHOCYTES ABSOLUTE AUTO 1.06 K/mm3 (0.84-5.20); LYMPHOCYTES PERCENT AUTO 7 % (21-46); MONOCYTES ABSOLUTE AUTO 1.02 K/mm3 (0.16-1.47); MONOCYTES PERCENT AUTO 7 % (4-13); Mean Corpuscular HGB 32.7 pg (26.0-34.0); Mean Corpuscular HGB Conc 34.5 g/dL (31.5-36.5); Mean Corpuscular Volume 95 fL (80-100); Mean Platelet Volume 10.5 fL (9.1-12.4); NEUTROPHILS ABSOLUTE AUTO 12.04 K/mm3 (1.96-9.15); NEUTROPHILS PERCENT AUTO 85 % (41-73); Platelet Count 194 K/mm3 (150-400); RDW Coefficient Variation 13.7 % (11.7-14.2); RDW Standard Deviation 47.5 fL (35.1-46.3); Red Blood Cell Count 4.13 M/mm3 (4.30-5.90); White Blood Cell Count 14.23 K/mm3 (4.00-11.30)
[2023-04-14 05:35] LABS: Albumin, Blood 3.1 g/dL (3.4-5.0); Albumin/Globulin Ratio 0.9 (0.8-1.8); Bilirubin, Total 0.8 mg/dL (0.1-1.0); Bun/Creatinine Ratio 26.9 (12.0-20.0); Calcium, Blood 8.5 mg/dL (8.5-10.1); Creatinine, Blood 0.89 mg/dL (0.60-1.20); Globulin, Blood 3.4 g/dL (2.2-4.0); Magnesium, Blood 1.9 mg/dL (1.6-2.4); Potassium, Blood 2.7 mmol/L (3.5-5.5); Total Protein, Blood 6.5 g/dL (6.4-8.2)
[2023-04-14 07:37] VITALS: BP 181/88
[2023-04-14 09:46] LABS: Adenovirus F 40/41 Not Detected (NOT DETECT); Astrovirus Not Detected (NOT DETECT); Campylobacter Sp Not Detected (NOT DETECT); Cryptosporidium Not Detected (NOT DETECT); Cyclospora Cayetanensis Not Detected (NOT DETECT); E. Coli O157 Not Detected (NOT DETECT); Entamoeba Histolytica Not Detected (NOT DETECT); Enteroaggregative E. coli-EAEC Not Detected (NOT DETECT); Enteropathogenic E. coli-EPEC Not Detected (NOT DETECT); Enterotoxigenic E. coli-ETEC Not Detected (NOT DETECT); Giardia Lamblia Not Detected (NOT DETECT); Norovirus GI/GII Not Detected (NOT DETECT); Plesiomonas Shigelloides Not Detected (NOT DETECT); Rotavirus A Not Detected (NOT DETECT); Salmonella Sp Not Detected (NOT DETECT); Sapovirus Not Detected (NOT DETECT); Shiga Toxin-prod E. coli-STEC Not Detected (NOT DETECT); Shigella/Enteroin E. coli-EIEC Not Detected (NOT DETECT); Vibrio Cholerae Not Detected (NOT DETECT); Vibrio Sp Not Detected (NOT DETECT); Yersinia Enterocolitica Not Detected (NOT DETECT)
[2023-04-14 15:55] VITALS: BP 152/109
[2023-04-14 17:08] VITALS: BP 149/117
[2023-04-14 18:04] VITALS: BP 153/71
--- NOTE | 2023-04-14 18:15 | NUR ---
SHIFT SUMMARY PT CONFUSED T/O SHIFT. FIGITING AND MESSING WITH TUBES/BLANKETS. PT ATTEMPTED TO PULL OUT HIS NGT ONCE TODAY. RN WAS ABLE TO MAINTAIN THE TUBE. PT NOW TOUCHING THE TUBE BUT NOT ATTEMPTING TO PULL SINCE THEN. DR. BONILLA IN TO EVAL THE PT. RECTAL TUBE WAS PLACED AT BEDSIDE BY DR. BONILLA. IRRIGATED AT THIS TIME, WITHOUT OUTPUT. PT HAD PREVIOSLY HAD TWO SMEARS, ANOTHER SMEAR AROUND THE RECTAL TUBE THIS AFTERNOON. MINIMAL BROWN LIQUID IN TUBE. GI PANEL NEGATIVE TODAY. HYDRALZINE GIVEN THIS AFTERNOON FOR A BP OF 149/117, IMPROVED TO 153/71. PT SATING IN THE 90S ON RA. IV REPLACED TODAY. NO OTHER ACUTE CHANGES IN ASSESSMENT AT THIS TIME. VS REVIEWED. CALL LIGHT IN REACH.
[2023-04-14 19:32] VITALS: BP 142/88
[2023-04-15 03:39] VITALS: BP 154/92
[2023-04-15 04:56] LABS: BASOPHILS ABSOLUTE AUTO 0.03 K/mm3 (0.00-0.23); BASOPHILS PERCENT AUTO 0 % (0-2); EOSINOPHILS ABSOLUTE AUTO 0.03 K/mm3 (0.00-0.68); EOSINOPHILS PERCENT AUTO 0 % (0-6); Hematocrit 37.3 % (37.0-53.0); Hemoglobin 13.1 g/dL (13.5-17.5); IMMATURE GRAN ABSOLUTE AUTO 0.06 K/mm3 (0.00-0.10); IMMATURE GRAN PERCENT AUTO 1 % (0-1); LYMPHOCYTES ABSOLUTE AUTO 1.46 K/mm3 (0.84-5.20); LYMPHOCYTES PERCENT AUTO 11 % (21-46); MONOCYTES ABSOLUTE AUTO 1.06 K/mm3 (0.16-1.47); MONOCYTES PERCENT AUTO 8 % (4-13); Mean Corpuscular HGB 32.9 pg (26.0-34.0); Mean Corpuscular HGB Conc 35.1 g/dL (31.5-36.5); Mean Corpuscular Volume 94 fL (80-100); Mean Platelet Volume 10.3 fL (9.1-12.4); NEUTROPHILS ABSOLUTE AUTO 10.15 K/mm3 (1.96-9.15); NEUTROPHILS PERCENT AUTO 79 % (41-73); Platelet Count 185 K/mm3 (150-400); RDW Coefficient Variation 13.8 % (11.7-14.2); RDW Standard Deviation 46.6 fL (35.1-46.3); Red Blood Cell Count 3.98 M/mm3 (4.30-5.90); White Blood Cell Count 12.79 K/mm3 (4.00-11.30)
[2023-04-15 05:16] LABS: Albumin/Globulin Ratio 0.9 (0.8-1.8); Bilirubin, Total 0.8 mg/dL (0.1-1.0); Bun/Creatinine Ratio 20.8 (12.0-20.0); Calcium, Blood 8.3 mg/dL (8.5-10.1); Creatinine, Blood 0.63 mg/dL (0.60-1.20); Globulin, Blood 3.3 g/dL (2.2-4.0); Magnesium, Blood 1.5 mg/dL (1.6-2.4); Potassium, Blood 2.5 mmol/L (3.5-5.5); Total Protein, Blood 6.3 g/dL (6.4-8.2)
--- NOTE | 2023-04-15 06:15 | NUR ---
SHIFT SUMMARY PT IS VERY DIFFICULT TO UNDERSTAND. PT TALKS IN WHISPERS UNLESS YOU TELL HIM THAT YOU CAN'T HEAR HIM AND TO SPEAK LOUDER, THEN PT WILL SPEAK IN A VOICE THAT CAN BE HEARD. PT CONTINUES TO HAVE NG TUBE AND RECTAL TUBE, BOTH HAVE HAD A LITTLE OUTPUT. PT CONTINUES TO BE SOMEWHAT CONFUSED, BUT HE IS PLEASANT. PT FORGETS HIS LIMITATIONS AND TRIES, AT TIMES, TO PULL HIS NG TUBE AND HIS CATHETER.
--- NOTE | 2023-04-15 07:17 | NUR ---
ASSUMED CARE: PT RESTING IN BED. NG TO LIS. IVF RUNNING, NO ACUTE NEEDS OR CONCERNS AT THIS TIME.
[2023-04-15 07:46] VITALS: BP 151/88
--- NOTE | 2023-04-15 11:28 | NUR ---
PT'S FAMILY CAME TO VISIT. REVIEWED DR BONILLA'S NOTE WITH THEM TO RELAY TREATMENT PLANS. DECLINED FURTHER QUESTIONS OR CONCERNS.
[2023-04-15 14:40] LABS: Bun/Creatinine Ratio 19.5 (12.0-20.0); Calcium, Blood 8.4 mg/dL (8.5-10.1); Creatinine, Blood 0.51 mg/dL (0.60-1.20); Potassium, Blood 2.4 mmol/L (3.5-5.5)
--- NOTE | 2023-04-15 17:55 | NUR ---
SHIFT SUMMARY: PT CONTINUES TO HAVE NG TUBE AND RECTAL TUBE IN PLACE. DR BONILLA CAME TO SEE PT TODAY AND STATES THAT DUE TO STOOL OUTPUT INCREASE, IF PT REMOVED NG TUBE IT CAN STAY OUT BUT PT HAS DONE WELL WITH REORIENTING AND NOT PURPOSELY PULLING AT LINES THIS SHIFT. FAMILY WAS GIVEN UPDATE EARLIER IN SHIFT. POTASSIUM REPLACEMENT INFUSING AT THIS TIME. NO ACUTE NEEDS OR CONCERNS.
[2023-04-15 19:56] VITALS: BP 135/97
[2023-04-15 20:29] LABS: Creatinine, Blood 0.6 mg/dL (0.60-1.20); Potassium, Blood 2.9 mmol/L (3.5-5.5)
[2023-04-16 02:34] VITALS: BP 156/94
--- NOTE | 2023-04-16 04:34 | NUR ---
SHIFT SUMMARY PT SLEEPING OFF AND ON THROUGHOUT THE SHIFT. PT CONTINUES TO HAVE NG TUBE AND RECTAL TUBE. RECTAL TUBE PRODUCING BROWN OUTPUT. NG CONTINUES TO PRODUCE BROWN OUTPUT. BED ALARM ON FOR SAFETY.
[2023-04-16 05:40] LABS: Free Thyroxine 1.39 ng/dL (0.70-1.60); Thyroid Stimulating Hormone 1.77 uIU/mL (0.360-4.800)
[2023-04-16 07:19] VITALS: BP 149/74
[2023-04-16 11:14] LABS: Bun/Creatinine Ratio 12.1 (12.0-20.0); Calcium, Blood 8.1 mg/dL (8.5-10.1); Creatinine, Blood 0.58 mg/dL (0.60-1.20); Potassium, Blood 2.8 mmol/L (3.5-5.5)
[2023-04-16 11:47] VITALS: BP 131/88
--- NOTE | 2023-04-16 12:43 | NUR ---
AM NOTE: PATIENT ALERT TO SELF. WHISPERS BACK NAME AND DATE OF . UNABLE TO TELL ME WHERE HE IS OR WHY HE IS HERE. AT TIMES NONSENSICAL STATEMENTS, VERY HARD TO UNDERSTAND WHISPER. PATIENT OPENING EYES TO VOICE AND TOUCH. PERRLA. MOVING UPPER EXTREMITIES EQUALLY. BILATERAL LOWER EXTREMITIES CONTRACTED AND STIFF, PILLOWS PLACED AND RANGE OF MOTION PREFORMED BY THIS RN THROUGHOUT AM ROUNDING. PATIENT BEDREST AT THIS TIME. NO TELE. BP STABLE. HR 70'S. DENIES CHEST PAIN/PRESSURE/PALPITATIONS. IV FLUIDS INFUSING PER EMAR. NO EDEMA NOTED. ON ROOM AIR SATING ABOVE 95%. DENIES SOB/COUGH. EVEN AND UNLABORED RESPIRATIONS. LUNGS SOUNDING CLEAR AND DIM IN BASES. BOWEL TONES PRESENT. ABDOMIN SLIGHLTY FIRM. NG TUBE TO LOW INTERMIT SUCTION THIS AM WITH VERY MINIMAL GREEN/BROWN OUTPUT. DR. CROWELL BY TO ROUND AND ASKED THIS RN TO REMOVE NG TUBE AND PLACE PATIENT ON CLEAR LIQUID DIET. PATIENT COUGHING OCCASIONALLY WITH SWALLOW, SPEECH THERAPY ORDERS IN PLACE AND PATIENT REMAINS NPO AT THIS TIME. SIMMONS CATH IN PLACE DRAINING CLEAR/YELLOW URINE, CATH CARE COMPLETED THIS AM AND NEEDED. RECTAL TUBE IN PLACE DRAINING BROWN/LIQUID STOOL. COCCYX RED WITH MINIMAL SKIN BREAKDOWN. MEPILEX IN PLACE WELL BARRIER CREAM. Q2 TURNING AND EGG CRATE PLACED UNDER PATIENT FOR COMFORT. SKIN OVERALL PALE WITH SCATTERED BRUISING. PATIENT CALM. COMPLAINS OF BILATERAL KNEE PAIN THIS AFTERNOON, PRN MEDS GIVEN PER EMAR. CALL LIGHT IN REACH. PATIENT LAYING IN BED LISTENING TO MUSIC WITH EYES CLOSED. BED ALARM IN PLACE. DR. CROWELL UPDATED ON AM POTASSIUM LEVELS, ORDERS FOR THIS RN TO PLACE KCL IV 40 MEQ X1 NOW. ORDERS IN PLACE.
[2023-04-16 15:14] VITALS: BP 151/88
--- NOTE | 2023-04-16 18:21 | NUR ---
SHIFT SUMMARY: NO ACUTE CHANGES, SEE PREVIOUS NOTE. PATIENT REMAINS ON ROOM AIR. VITALS STABLE THROUGOUT SHIFT. REMAINS NPO AT THIS TIME, PENDING SPEECH EVAL. Q4 ORAL CARE. PATIENT REMAINS LETHARGIC AND SLEEPING MOST OF SHIFT. WAKES TO VOICE AND TOUCH, OPEN EYES, WILL ANSWER QUESTIONS WITH ONE WORD ANSWERS OR NONSENSICAL STATEMENTS. IV FLUIDS INFUSING PER EMAR. IV ABX INFUSED THIS SHIFT. RECTAL TUBE AND SIMMONS CATH REMAIN PATENT AND DRAINING TO GRAVITY. CALL LIGHT IN REACH. PATIENT LAYING IN BED AT THIS TIME WITH BED ALARM IN PLACE, RESTING CALMLY.
[2023-04-16 19:53] VITALS: BP 165/85
[2023-04-16 23:09] VITALS: BP 130/71
[2023-04-17 02:40] VITALS: BP 123/89
[2023-04-17 04:49] LABS: BASOPHILS ABSOLUTE AUTO 0.04 K/mm3 (0.00-0.23); BASOPHILS PERCENT AUTO 1 % (0-2); EOSINOPHILS ABSOLUTE AUTO 0.17 K/mm3 (0.00-0.68); EOSINOPHILS PERCENT AUTO 2 % (0-6); Hematocrit 34.1 % (37.0-53.0); Hemoglobin 12.3 g/dL (13.5-17.5); IMMATURE GRAN ABSOLUTE AUTO 0.03 K/mm3 (0.00-0.10); IMMATURE GRAN PERCENT AUTO 0 % (0-1); LYMPHOCYTES PERCENT AUTO 17 % (21-46); MONOCYTES ABSOLUTE AUTO 0.85 K/mm3 (0.16-1.47); MONOCYTES PERCENT AUTO 11 % (4-13); Mean Corpuscular HGB 32.8 pg (26.0-34.0); Mean Corpuscular HGB Conc 36.1 g/dL (31.5-36.5); Mean Corpuscular Volume 91 fL (80-100); Mean Platelet Volume 9.8 fL (9.1-12.4); NEUTROPHILS PERCENT AUTO 69 % (41-73); Platelet Count 165 K/mm3 (150-400); RDW Coefficient Variation 13.2 % (11.7-14.2); RDW Standard Deviation 43.3 fL (35.1-46.3); Red Blood Cell Count 3.75 M/mm3 (4.30-5.90); White Blood Cell Count 7.59 K/mm3 (4.00-11.30)
[2023-04-17 05:18] LABS: Magnesium, Blood 1.4 mg/dL (1.6-2.4)
[2023-04-17 05:42] LABS: Albumin, Blood 2.7 g/dL (3.4-5.0); Albumin/Globulin Ratio 0.9 (0.8-1.8); Bun/Creatinine Ratio 9.3 (12.0-20.0); Calcium, Blood 7.5 mg/dL (8.5-10.1); Creatinine, Blood 0.65 mg/dL (0.60-1.20); Globulin, Blood 2.9 g/dL (2.2-4.0); Potassium, Blood 2.2 mmol/L (3.5-5.5); Total Protein, Blood 5.6 g/dL (6.4-8.2)
[2023-04-17 07:35] VITALS: BP 140/82
--- NOTE | 2023-04-17 08:33 | NUR ---
Patient was sleepy and did not wake up enough for oral medication. Pt voice is barely a wisper and he mumbles and is difficult to understand. Patient knows name and birthdate. Pt is very stiff, legs are bent and tight together. Pillow between kness. Pt was repositioned, coccyx with mepilex and sl redened bottom. Pt with rectal tube, liquid watery stool, some leaking at site. cream to rectal area after cleaning. Pt with francois cath which pt was pulling on several times. tubing moved out of reach. Pt was medicated x1 for pain with fentanyl 25mg at 2005 with good relief. Pt more alert this am. Critical K+ 2.[address] Perez, new orders received. Call light in reach.
[2023-04-17 15:30] VITALS: BP 156/88
--- NOTE | 2023-04-17 17:52 | NUR ---
SHIFT SUMMARY PT K 2.2 THIS AM. SUPPLIMENTED WITH 60 MEQ PER EMAR. ONE BAG OF MAG ALSO GIVEN TODAY. TELE ORDERED AND PLACED TO PATIENT TODAY. RUNNING NSR IN THE 70S PER ACTIVE DIRECTORY SPECIALIST. RECTAL TUBE HAS BROWN LIQUID OUTPUT. SIMMONS PATENT AND DRAINING TO GRAVITY. PT SEEN BY ST TODAY. NOW ON A SOFT FOOD DIET. FEEDER DUE TO CONFUSION AND PARKINSONS. PT HAS NOT MISSED A MED PASS THIS SHIFT. PT HAD ABD CT DONE TODAY WITH SIGNIFICANT DECREASE IN DISTENTION. IV FLUIDS DCED SINCE PT IS TAKING IN PO INTAKE. BLOOD SUGARS CHANGED TO ACHS AND INSULIN LCS TO REFLECT THIS. BARRIER CREAM TO ANUS WHEN REPOSITIONED AND CLEANSED. NEW FOAM PLACED TO SACRUM. NO OTHER ACUTE CHANGES IN ASSESSMENT AT THIS TIME. VS REVIEWED. CALL LIGHT IN REACH. UP IN BED AT THIS TIME, EATING DINNER WITH ASSISTANCE FROM AIDE.
[2023-04-17 23:07] VITALS: BP 166/79
[2023-04-18 02:09] VITALS: BP 171/87
--- NOTE | 2023-04-18 04:18 | NUR ---
SHIFT SUMMARY: PT IS ALERT AND ORIENTED TO SELF. BEDBOUND AT BASELINE. RECTAL TUBE AND SIMMONS PATENT AND DRAINING. PT SHOWS NO S/S FOR PAIN, NAUSEA, VOMITING, OR SOB. NO ACUTE CHANGES OR EVENTS OVERNIGHT. BED IN LOW POSITION, CALL LIGHT WITHIN REACH. WILL REPORT TO DAY NURSE AND CONTINUE TO MONITOR.
[2023-04-18 05:15] LABS: Hematocrit 34.9 % (37.0-53.0); Hemoglobin 12.7 g/dL (13.5-17.5); Mean Corpuscular HGB 32.6 pg (26.0-34.0); Mean Corpuscular HGB Conc 36.4 g/dL (31.5-36.5); Mean Corpuscular Volume 90 fL (80-100); Mean Platelet Volume 10.2 fL (9.1-12.4); Platelet Count 187 K/mm3 (150-400); RDW Coefficient Variation 13.2 % (11.7-14.2); RDW Standard Deviation 43.5 fL (35.1-46.3); Red Blood Cell Count 3.89 M/mm3 (4.30-5.90); White Blood Cell Count 7.58 K/mm3 (4.00-11.30)
[2023-04-18 05:35] LABS: Magnesium, Blood 1.6 mg/dL (1.6-2.4)
[2023-04-18 06:18] LABS: Albumin, Blood 2.7 g/dL (3.4-5.0); Anion Gap 4 mmol/L (6-16); Blood Urea Nitrogen 5 mg/dL (8-24); CO2, Blood 32 mmol/L (21-32); Chloride, Blood 105 mmol/L (98-108); Creatinine, Blood 0.56 mg/dL (0.60-1.20); Glomerular Filtration Rate 102 (60-); Glucose, Blood 131 mg/dL (70-99); Potassium, Blood 2.3 mmol/L (3.5-5.5); Sodium, Blood 141 mmol/L (136-145)
[2023-04-18 07:26] VITALS: BP 155/78
--- NOTE | 2023-04-18 18:29 | NUR ---
SHIFT SUMMARY PT MORE CONFUSED TODAY COMPARED TO YESTERDAY. UNABLE TO FOLLOW DIRECTIONS. 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 PALLIATIVE CARE IN TO SEE THE PATIENT, PT CHANGED TO DNR AFTER MEETING WITH FAMILY AND PALLIATIVE CARE. PT CHANGED TO DNR STATUS AND HOSPICE REFERAL SENT FOR DISCHARGE. DC PLANNING WORKING ON INTERMEDIATE PLACEMENT. RECTAL TUBE REMOVED AT END OF SHIFT TODAY. MINIMAL OUTPUT T/O SHIFT. PT HAS A SMALL LOOSE STOOL WHEN REMOVED. NO OTHER ACUTE CHANGES IN ASSESSMENT AT THIS TIME. CALL LIGHT IN REACH. BED ALARM IN PLACE.
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
--- NOTE | 2023-04-18 19:15 | NUR ---
BEDSIDE REPORT GIVEN BY RIZWAN LAWRENCE. PT LYING ON RIGHT SIDE. ON RA. ON TELE. SIMMONS IN PLACE. PT IS CONFUSED. WILL CONTINUE TO PROVIDE CARE T/O SHIFT. CALL LT IN REACH. BED ALARM ON.
[2023-04-18 20:17] VITALS: BP 131/92
[2023-04-19 03:37] VITALS: BP 101/62
--- NOTE | 2023-04-19 03:45 | NUR ---
ASSUMED CARE OF PT.
--- NOTE | 2023-04-19 04:04 | NUR ---
SHIFT SUMMARY: PT CONTINUES TO BE CONFUSED. ON RA. SR AT 74 ON TELE. PT TOOK MEDS WHOLE IN APPLESAUCE WELL, TOLERATED THIN LIQUIDS WELL. MEDICATED ONCE WITH 25 MCG OF FENTANYL FOR 6/10 USING FLACC SCALE. PT MOVES FREQUENTLY IN BED. DID NOT TRY AND EXIT BED THIS SHIFT. BED ALARM ON FOR PT SAFETY. NO ACUTE CHANGES. WILL CONTINUE TO PROVIDE CARE UNTIL SHIFT REPORT TO ONCOMING NURSE.
[2023-04-19 07:41] VITALS: BP 161/89
[2023-04-19 15:53] VITALS: BP 152/89
--- NOTE | 2023-04-19 17:27 | NUR ---
SHIFT SUMMARY PT AOX1 NOW BUT EARLY IN THE SHIFT HE KNEW HE WAS IN [place] AT THE HOSPITAL. PT IS RESTLESS IN BED, SOMEWHAT EXPLAINED LEG PAIN AND MEDICATED PER THE EMAR. CATH IN PLACE AND PATENT, PT TENDS TO TRY TO PULL ON IT. THIS NURSE PROVIDED HIM WITH AN ACTIVITY BLANKET AND IT HAS HELPED. HE WAS ACCEPTED TO [facility] PER THE APPEALS SPECIALIST. FAMILY AWARE AND NOTIFIED. BRIEF CHANGED NEEDED, MEPALEX ON [employer] CHANGED THIS SHIFT AND CREAM APPLIED. CALL LIGHT WITHIN REACH, BED IN THE LOWEST POSITION. WILL REPORT TO ONCOMING NURSE.
[2023-04-19 19:43] VITALS: BP 131/117
[2023-04-19 21:28] VITALS: BP 146/93
[2023-04-20 04:52] LABS: Hematocrit 34.6 % (37.0-53.0); Hemoglobin 12.3 g/dL (13.5-17.5); Mean Corpuscular HGB 32.2 pg (26.0-34.0); Mean Corpuscular HGB Conc 35.5 g/dL (31.5-36.5); Mean Corpuscular Volume 91 fL (80-100); Platelet Count 168 K/mm3 (150-400); RDW Coefficient Variation 13.3 % (11.7-14.2); RDW Standard Deviation 43.6 fL (35.1-46.3); Red Blood Cell Count 3.82 M/mm3 (4.30-5.90); White Blood Cell Count 6.48 K/mm3 (4.00-11.30)
[2023-04-20 05:13] LABS: Albumin, Blood 2.8 g/dL (3.4-5.0); Anion Gap 6 mmol/L (6-16); Blood Urea Nitrogen 9 mg/dL (8-24); Bun/Creatinine Ratio 15.9 (12.0-20.0); CO2, Blood 29 mmol/L (21-32); Calcium, Blood 8.3 mg/dL (8.5-10.1); Chloride, Blood 105 mmol/L (98-108); Creatinine, Blood 0.57 mg/dL (0.60-1.20); Glomerular Filtration Rate 101 (60-); Glucose, Blood 99 mg/dL (70-99); Magnesium, Blood 1.6 mg/dL (1.6-2.4); Phosphorus, Blood 3.2 mg/dL (2.5-4.9); Sodium, Blood 140 mmol/L (136-145)
[2023-04-20 05:15] VITALS: BP 180/95
--- NOTE | 2023-04-20 05:51 | NUR ---
Rn shift summary: Patient awakens to verbal stimuli and to touch. Pt has not been very verbal tonight. Patient with francois cath to gravily, 525 danielle urine out. He had one small stool and one medium loose but not watery stool. Patient legs get very tight and he is difficult to clean, change and turn at times. Medicated x1 with fentanyl 24 mg with good relief. Rested better and was easiler to change. Tele shows SR/SB rate 58-60. Plan is for possible DC to [facility] Hospice today. Bed in lowest position. Bed alarm is on.
[2023-04-20 06:39] VITALS: BP 143/75
[2023-04-20 07:23] VITALS: BP 146/80
[2023-04-20] MEDS ORDERED: AMOCLA500 PO (11:17)
--- NOTE | 2023-04-20 14:31 | NUR ---
PT'S SPOUSE AND STAFF MEMBER FROM HOSPICE AT BEDSIDE.
--- NOTE | 2023-04-20 14:54 | NUR ---
PT TRANSPORTED TO [facility] VIA [employer] [facility]. TROY IN PLACE. PT'S SPOUSE TOOK HOME ALL PERSONAL BELONGINGS. DISCHARGE PACKET SENT WITH JESSE MORENO.
== END 2023-04-20 14:58 | disposition hospice, home (50) | DRG 872 ==
LOC: ER 07:16 → MEDS 17:19
PROVIDERS: Emergency Medicine; Internal Medicine; Nurse Practitioner Acute Care; Physician Assistant; ADMIT Internal Medicine
DX: A41.9 Sepsis, unspecified organism (principal); K56.0 Paralytic ileus; E87.0 Hyperosmolality and hypernatremia; R65.20 Severe sepsis without septic shock; G20.A1 Parkinson's disease without dyskinesia, without mention of fluctuations; F02.80 Dementia in other diseases classified elsewhere, unspecified severity, without behavioral disturbance, psychotic disturbance, mood disturbance, and anxiety; E11.9 Type 2 diabetes mellitus without complications; Z51.5 Encounter for palliative care; Z66 Do not resuscitate; E87.6 Hypokalemia; E03.9 Hypothyroidism, unspecified; G47.33 Obstructive sleep apnea (adult) (pediatric); K31.89 Other diseases of stomach and duodenum; I10 Essential (primary) hypertension; F41.9 Anxiety disorder, unspecified; K21.9 Gastro-esophageal reflux disease without esophagitis; E83.42 Hypomagnesemia; Z79.84 Long term (current) use of oral hypoglycemic drugs; Z88.8 Allergy status to other drugs, medicaments and biological substances; Z79.890 Hormone replacement therapy; Z96.643 Presence of artificial hip joint, bilateral; Z96.652 Presence of left artificial knee joint; Z87.891 Personal history of nicotine dependence
CPT/HCPCS: 36415; 51702; 71045; 74018; 74176; 74177; 80048; 80053; 80069; 81001; 82272; 82947; 83605; 83690; 83735; 84132; 84439; 84443; 85025; 85027; 87040; 87086; 87507; 92526; 92610; 93005; 93010; 94760; 94762; 96361-59; 96365-59; 96366-59; 96367-59; 96368; 96375-59; 99285-25; A9270; C9113; J0360; J0696; J1650; J2405; J2543; J2765; J3010; J3475; J3480; J7030; J7042; J7050; J7120; Q9967